=== PATIENT | female | born 1940 | race Caucasian/White ===

== ENCOUNTER 2017-06-10 09:14 | Outpatient (CLI) | payer MEDICARE ==
--- NOTE | 2017-06-10 12:15 | CT ---
CT ABDOMEN AND PELVIS NONCONTRAST: History: Abdominal pain. Cirrhosis. Liver failure. FINDINGS: No comparison. The exam was originally scheduled with IV contrast. Elevated creatinine of 1.7 with GF R of 30 precludes IV contrast administration. Mild atelectasis and scarring are present at each lung base. Small amount of free fluid is present th roughout the abdomen and pelvis. Liver is small with a nodular contour. Gallbladder is surgically abs ent. Spleen measures up to 15.3 cm in length. Dilated venous structures at the splenic hilum have the appearance of varices. There is no evidence of bowel obstruction. Nonspecific lymph nodes are scattered throughout the mesen cristina and retroperitoneum. Urinary bladder is incompletely distended. There is circumferential wall thickening of the partially distended stomach. Calcification is present throughout the arterial structures. There are degenerative changes of the lumbar spine. IMPRESSION: 1. Circumferential wall thickening of the stomach without focal mass evident. Clinical correlation wi th any other signs and symptoms of gastritis is required. Cause is not apparent. 2. Cirrhosis with findings of portal venous hypertension as detailed above. 3. Atherosclerosis. 4. Status post cholecystectomy. POS: [facility]
== END 2017-06-10 09:15 | disposition home or self-care (01) ==
LOC: CT 09:14
PROVIDERS: ATTEND Internal Medicine Gastroenterology
DX: K74.60 Unspecified cirrhosis of liver (principal); R10.11 Right upper quadrant pain; K72.90 Hepatic failure, unspecified without coma; K31.89 Other diseases of stomach and duodenum; I70.90 Unspecified atherosclerosis; Z90.49 Acquired absence of other specified parts of digestive tract
CPT/HCPCS: 74176

== ENCOUNTER 2017-06-24 07:26 | Outpatient (CLI) | payer MEDICARE ==
--- NOTE | 2017-06-24 10:32 | ULT ---
HEPATIC DOPPLER ULTRASOUND: Date: 06-24-2017 Comparison: None. History: Right upper quadrant pain, cirrhosis. Technique: Multiplanar grayscale sonographic imaging of the upper abdomen obtained. Hepatic and splen ic vasculature is assessed with color flow/spectral analysis. FINDINGS: The imaged pancreas is grossly unremarkable. However, the distal body and tail of the pancreas are ob scured by bowel gas. The aorta and IVC are grossly unremarkable, demonstrating arterial and venous waveforms bilaterally. Portions of the abdominal aorta are completely obscured by bowel gas. Left hepatic vein, left portal vein, middle hepatic vein, right hepatic vein, main portal vein, and r ight portal vein are patent. There is small volume free fluid adjacent to the left and right lobes of the liver. The hepatic paren chyma is heterogeneous and echogenic with a peripheral irregular contour, consistent with the provide d history of cirrhosis. No focal liver lesion is evident. CBD measures 7 mm, dilated. Hepatic artery is patent with a normal arterial waveform noted. The spleen is enlarged, measuring up to 15 cm. Splenic artery and vein are patent and demonstrate jose ropriate arterial and venous waveforms bilaterally. Gallbladder is nonvisualized, consistent with history of cholecystectomy. IMPRESSION: 1. Cirrhotic appearance of the liver. Small volume ascites adjacent to the liver. Ascites and splenom egaly suggests portal hypertension. Hepatic and splenic vasculature is patent and demonstrates approp riate normal direction of flow. POS: [facility]
== END 2017-06-24 07:27 | disposition home or self-care (01) ==
LOC: ULT 07:26
PROVIDERS: ATTEND Internal Medicine Gastroenterology
DX: K74.60 Unspecified cirrhosis of liver (principal); R10.11 Right upper quadrant pain; R18.8 Other ascites; R16.1 Splenomegaly, not elsewhere classified
CPT/HCPCS: 76705

== ENCOUNTER 2017-08-29 14:47 | Inpatient (IN) | payer MEDICARE ==
[2017-08-29 16:01] LABS: INR-International Normal Ratio 1.9; PTT 45.4 SEC (22.9-36.1); Prothrombin Time 22.4 SEC (12.0-14.7)
[2017-08-29 16:02] LABS: #Basophils 0.1 thou/uL (0.0-0.2); #Eosinphils 0.1 thou/uL (0.0-0.7); #Lymphocytes 0.7 thou/uL (1.20-3.40); #Monocytes 0.7 thou/uL (0.11-0.59); #Neutrophils 9.2 thou/uL (1.40-6.50); %Basophils 0.8 % (0.0-1.0); %Eosinophils 0.8 % (0.0-10.0); %Lymphocytes 6.8 % (21.0-51.0); %Monocytes 6.4 % (0.0-10.0); %Neutrophils 85.2 % (42.0-75.0); Hemoglobin 10.5 g/dL (12.0-16.0); Mean Corpuscular HGB CONC 33.5 g/dL (32.0-36.0); Mean Platelet Volume 7.2 fL (7.4-10.4); Platelet Count 110 thou/uL (130-400); RBC Distribution Width 14.1 % (11.5-14.5); Red Blood Cell (RBC) Count 3.09 mill/uL (4.20-5.40); White Blood Cell (WBC) Count 10.8 thou/uL (4.8-10.8)
[2017-08-29 16:11] LABS: ALT (SGPT) 17 U/L (8-55); AST (SGOT) 34 U/L (5-34); Albumin 2.3 g/dL (3.4-4.8); Alkaline Phosphatase 134 U/L (40-150); Anion Gap 16 mmol/L (10-20); BUN (Urea Nitrogen) 59 mg/dL (9.8-20.1); Bilirubin, Total 2.8 mg/dL (0.2-1.2); Calc. Creatinine Clearance 0 mL/min (70-130); Calcium 8.4 mg/dL (7.8-10.44); Carbon Dioxide 16 mmol/L (23-31); Chloride 106 mmol/L (98-107); Estimated GFR-MDRD 13; Globulin 3.1 g/dL (2.4-3.5); Glucose 92 mg/dL (83-110); Lipase 28 U/L (8-78); Potassium 3.4 mmol/L (3.5-5.1); Protein, Total 5.4 g/dL (6.0-8.3); Sodium 135 mmol/L (136-145)
[2017-08-29 16:27] LABS: Burr Cells SLIGHT = 2-5 cells (100X) (0-1/hpf); MDiff Complete? YES; Ovalocytes SLIGHT = 2-5 cells (100X) (0-1/hpf); PLT Morphology Comment Appears Decreased; Polychromasia SLIGHT = 2-3 cells (100X) (0-2/hpf)
--- NOTE | 2017-08-29 20:01 | RAD ---
RIGHT HIP TWO VIEWS: 08/29/17 HISTORY: Fall, right hip pain. FINDINGS/IMPRESSION: There are degenerative changes. No definite fracture or dislocation is identified. If there is a high clinical suspicion for hip fracture, further evaluation with CT scan should be per formed. POS: [facility]
[2017-08-29] MEDS: Famotidine 40 MG/4 ML VIAL SLOW IVP SCH (20:44)
[2017-08-29] MEDS: Sodium Chloride 0.9% 1,000 ML IV SCH (20:45)
[2017-08-29 20:49] LABS: Hemoglobin 10.2 g/dL (12.0-16.0)
[2017-08-29] MEDS ORDERED: Famotidine 20 MG TAB PO SCH (21:00)
[2017-08-29] MEDS ORDERED: Heparin 5,000 UNITS/ML VIAL SC SCH (21:00)
--- NOTE | 2017-08-29 23:04 | HP ---
CHIEF COMPLAINT: Generalized weakness. 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 The patient stated that she has been battling on and off lower extremity edema for the past few months and has been taking her diuretics as prescribed. The patient did have a fal l about 5-6 weeks back; however, did not hit her head. Patient's family stated that last night she h ad several bouts of dark stools, which she normally has just loose brown stools since she is on lactu lose. The patient started to become more and more weak and had a significant amount of lower extremi ty swelling. The patient was seen by the campus dean, who ordered some labs. The patient was found to have an elevated creatinine of 2, which is more than her baseline of 1. The patient then w as directed to come into the hospital for further evaluation, given her elevated creatinine and also dark stools. The patient in the ER, underwent a stool for occult blood, the stool was negative for FOBT. 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 PAST SURGICAL HISTORY: She has had a paracentesis in 2017. She had a cholecystectomy. She had a to nsillectomy and back and knee surgery. ALLERGIES: She has allergies to LATEX, NATURAL RUBBER, MORPHINE AND SULFA. SOCIAL HISTORY: The patient denies any alcohol use, any drug use or any smoking history and she live s alone. REVIEW OF SYSTEMS: The patient does complain of lower back pain and otherwise the whole review of sy stem is negative. The following complete review of systems was negative, unless otherwise mentioned in the HPI or below : Constitutional: Weight loss or gain, ability to conduct usual activities. Skin: Rash, itching. Eyes: Double vision, pain. ENT/Mouth: Nose bleeding, neck stiffness, pain, tenderness. Cardiovascular: Palpitations, dyspnea on exertion, orthopnea. Respiratory: Shortness of breath, wheezing, cough, hemoptysis, fever or night sweats. Gastrointestinal: Poor appetite, abdominal pain, heartburn, nausea, vomiting, constipation, or diarr hea. Genitourinary: Urgency, frequency, dysuria, nocturia. Musculoskeletal: Pain, swelling. Neurologic/Psychiatric: Anxiety, depression. Allergy/Immunologic: Skin rash, bleeding tendency. PHYSICAL EXAMINATION: VITAL SIGNS: Pulse of 68, temperature 97.6, blood pressure 132/56, respirations of 18, 100% on room air. GENERAL: The patient is awake, alert, oriented x3; however, does appear to be dehydrated. CARDIOVASCULAR: S1, S2 present. No murmurs, rubs or gallops. LUNGS: Clear to auscultation. No rhonchi or wheezes noted. ABDOMEN: Obese. She does have a midline healed abdominal scar. Bowel sounds are present x2. EXTREMITIES: The patient has significant +3 lower extremity pitting edema. She does have some pain upon palpation of her right hip area. LABORATORY DATA: Lab amador WBCs of 10.8, hemoglobin of 10.5, hematocrit of 31.4, platelets of 110. C hemistry of 135, potassium of 3.4, bicarbonate of 16, gap of 16, BUN of 59, creatinine of 3.35, lipas e of 28. LFTs are normal. ASSESSMENT AND PLAN: The patient is a very pleasant 77-year-old female who presents to the hospital from the GI clinic for worsening creatinine. 1. Acute kidney injury most likely secondary to prerenal dehydration; however, cannot rule out hepat orenal syndrome. I believe personally gave based on her lab results, it is most likely prerenal. We will hydrate her gently, hold off on the diuretics for now. Check some urine electrolytes and get a n ultrasound of her bladder. The patient did state that she did develop up on her spironolactone yes terday, since she has been having significant amount of weight gain. Dark stools. The patient FOBT was negative. Her hemoglobin is about her baseline; however, could be possibly hemoconcentrated. We will check H and H q.6 hours and transfuse as needed. We will start the patient on Pepcid 20 mg b.i.d., also, we will consult Gastroenterology for further evaluation. 2. Hypokalemia. We will replace with some potassium. 3. Non-anion gap metabolic acidosis. We will continue to monitor. 4. Elevated BUN, again this could be secondary to dehydration. We will continue to monitor. 5. Worsening lower extremity edema. This could be secondary to her cirrhosis, it could be secondary to her worsening kidney function, which would further lose the protein. Also, I will check an echoc ardiogram, given her age of 77, just want to rule out any cardiac issues of her worsening lower extre mity edema, which is refractory to diuretics according to the patient. 6. Deep venous thrombosis prophylaxis. We will put the patient on subcutaneous heparin for deep jessica ous thrombosis prophylaxis.
[2017-08-30 01:38] VITALS: BMI 35.4
[2017-08-30 05:14] LABS: #Basophils 0.1 thou/uL (0.0-0.2); #Eosinphils 0.2 thou/uL (0.0-0.7); #Lymphocytes 1.3 thou/uL (1.20-3.40); #Monocytes 0.7 thou/uL (0.11-0.59); #Neutrophils 6.6 thou/uL (1.40-6.50); %Basophils 0.6 % (0.0-1.0); %Eosinophils 2.3 % (0.0-10.0); %Lymphocytes 14.6 % (21.0-51.0); %Monocytes 7.6 % (0.0-10.0); Hemoglobin 9.2 g/dL (12.0-16.0); Mean Corpuscular HGB CONC 33.1 g/dL (32.0-36.0); Mean Corpuscular Hemoglobin 33.5 pg (27.0-31.0); Mean Platelet Volume 7.3 fL (7.4-10.4); Platelet Count 75 thou/uL (130-400); Red Blood Cell (RBC) Count 2.74 mill/uL (4.20-5.40); White Blood Cell (WBC) Count 8.8 thou/uL (4.8-10.8)
[2017-08-30 05:23] LABS: ALT (SGPT) 15 U/L (8-55); AST (SGOT) 33 U/L (5-34); Albumin 1.9 g/dL (3.4-4.8); Alkaline Phosphatase 119 U/L (40-150); Anion Gap 14 mmol/L (10-20); BUN (Urea Nitrogen) 63 mg/dL (9.8-20.1); Bilirubin, Total 2.1 mg/dL (0.2-1.2); Calc. Creatinine Clearance 22 mL/min (70-130); Calcium 8.1 mg/dL (7.8-10.44); Carbon Dioxide 17 mmol/L (23-31); Chloride 109 mmol/L (98-107); Estimated GFR-MDRD 14; Globulin 2.7 g/dL (2.4-3.5); Glucose 74 mg/dL (83-110); Potassium 3.5 mmol/L (3.5-5.1); Protein, Total 4.6 g/dL (6.0-8.3); Sodium 136 mmol/L (136-145)
[2017-08-30] MEDS: Sodium Chloride 0.9% 1,000 ML IV SCH ×3 (08:24→20:50)
--- NOTE | 2017-08-30 13:19 | ULT ---
BILATERAL RENAL ULTRASOUND: Date: 08/30/17 HISTORY: Acute renal insufficiency. FINDINGS: Real-time imaging of the right and left kidneys were performed. The right kidney measures 9.3 cm and the left kidney measures 8.1 cm in size. There appears to be brenda e cortical thinning of both kidneys and mild increased echogenicity of both kidneys. No signs of cyst , mass, or obstruction. Moderate ascites noted. The bladder is not fully distended. Incidental note is made of slightly enlarged spleen measuring 15.0 cm in length. IMPRESSION: 1. Mild increased echogenicity of both kidneys with cortical thinning. This suggests some underlying medical renal disease. 2. Ascites. 3. Mild splenomegaly. POS: [facility]
--- NOTE | 2017-08-30 14:51 | PDOC.PN ---
- Subjective Encounter Start Date: 08/30/17 Encounter Start Time: 13:00 Subjective: pt up in bed no complains - Objective Resuscitation Status: Resuscitation Status FULL:Full Resuscitation Vital Signs & Weight: Vital Signs (12 hours) Temp Pulse Resp BP Pulse Ox 08/30/17 12:00 98.2 F 95 18 109/56 L 99 08/30/17 08:00 98.3 F 78 16 99 08/30/17 07:53 98.3 F 78 16 115/67 99 08/30/17 03:46 97.9 F 70 15 108/60 97 Weight Weight 206 lb 8 oz I&O: 08/29/17 08/30/17 08/31/17 06:59 06:59 07:59 Intake Total 1500 Balance 1500 Result Diagrams: 08/30/17 04:01 08/30/17 04:01 Additional Labs: Accuchecks 08/30/17 08/29/17 05:41 21:24 POC Glucose 76 82 Phys Exam - Physical Examination HEENT: PERRLA, moist MMs Neck: no nodes, no JVD Respiratory: no wheezing, no rales Cardiovascular: RRR Gastrointestinal: soft, non-tender Musculoskeletal: edema present improved since last night Dx/Plan - Plan * . 1) shadi 2) dark stool 3) cirrhosis 4) falls plan: pt's creatinine is improving slowly, if her creatinine does not improve will need to consult nephrology. most likely prerenal, bladder scan pending fobt is negative will hold dirutics will check lumbar xray for back pain. PT /OT Review of Systems - Review of Systems Eyes: negative: Pain, Vision Change, Conjunctivae Inflammation, Eyelid Inflammation, Redness, Other ENT: negative: Ear Pain, Ear Discharge, Nose Pain, Nose Discharge, Nose Congestion, Mouth Pain, Mouth Swelling, Throat Pain, Throat Swelling, Other Respiratory: negative: Cough, Dry, Shortness of Breath, Hemoptysis, SOB with Excertion, Pleuritic Pain, Sputum, Wheezing Cardiovascular: negative: chest pain, palpitations, orthopnea, paroxysmal nocturnal dyspnea, edema, light headedness, other Gastrointestinal: negative: Nausea, Vomiting, Abdominal Pain, Diarrhea, Constipation, Melena, Hematochezia, Other Musculoskeletal: Back Pain - Medications/Allergies Allergies/Adverse Reactions: Allergies Allergy/AdvReac Type Severity Reaction Status Date / Time latex Allergy Verified 08/30/17 01:40 morphine Allergy Verified 08/30/17 01:40 Sulfa (Sulfonamide Allergy Verified 08/30/17 01:40 Antibiotics) Medications: Current Medications Famotidine (Pepcid) 20 mg SLOW IVP QPM [facility] Last Admin: 08/29/17 20:44 Dose: 20 mg Sodium Chloride (Normal Saline 0.9%) 1,000 mls @ 100 mls/hr IV .Q10H [facility] Last Admin: 08/30/17 11:41 Dose: Not Given
--- NOTE | 2017-08-30 15:51 | RAD ---
LUMBAR SPINE RADIOGRAPHS THREE VIEWS 08/30/17 PROVIDED CLINICAL HISTORY: Back pain. FINDINGS: Comparison is made with the study dated 05/04/15. Lumbar alignment appears normal. Lumbar vertebral body heights appear preserved. Lower lumbar spine f acet arthritis changes are seen. Vascular calcifications are noted. Cholecystectomy clips project in the right upper quadrant. IMPRESSION: Lumbar degenerative change without evidence for an acute osseous abnormality. POS: [facility]
[2017-08-30] MEDS: Famotidine 40 MG/4 ML VIAL SLOW IVP SCH (20:50)
[2017-08-30] MEDS: Lidocaine 5% Patch TD SCH (20:50)
--- NOTE | 2017-08-31 00:15 | CON ---
DATE OF CONSULTATION: 08/30/2017 REFERRING PHYSICIAN: Dr. Amira Kessler, [facility]. REASON FOR CONSULTATION: Generalized weakness, vague, arthralgias and generalized body pains and als o history of dark stool. HISTORY OF PRESENT ILLNESS: Ms. Patricia Machado is a very pleasant 77-year-old female wit h liver cirrhosis and ascites from SPENCE. The patient has had a therapeutic paracentesis done [place] [address] Minor. The patient also is supposed to be taking lactulose as a maintenance dose. The zora ent developed back pain, increased pedal edema and abdominal swelling approximately 10-14 days ago. She was seen by Dr. Daljit Minor and had some blood tests done. The patient's family tells me that Dr. Minor office called yesterday and asked them to come to the ER. The patient has been takin g diuretics for pedal edema. The patient has some vague back pain and generalized body pains recentl y. There is no history of fevers. The patient came to the ER and had routine blood tests done. She was found to have evidence of kidney injury with a BUN and creatinine being higher than her baseline status. Since admission, the patient's leg swelling has markedly improved. She has abdominal pain. There is no nausea, no vomiting. In fact, she actually feels hungry and she wants to eat now. The patient tells me she was having loose stools for a day or two and she was having multiple stools. S he said the stools were dark. However, when she came to the ER, she had a stool testing done for occ ult blood. The stools were negative for occult blood. Since admission, the patient is urinating sammie y well, but she has had no stool. She basically has clear liquid diet at the present time. No nause a or vomiting. The patient had an EGD and a colonoscopy by Dr. Minor in 03/2017. She had multiple polyps removed. Two of the polyps . She also had an EGD and as per the daughter, she was told to have 1+ esophageal varicosities. The patient has no relevant history. ALLERGIES: Allergic to LATEX, NATURAL RUBBER, MORPHINE and SULFA. SOCIAL HISTORY: The patient does not smoke or drink alcohol. PAST MEDICAL HISTORY: 1. Liver cirrhosis, ascites and portal hypertension. 2. Hypothyroidism. 3. Diabetes mellitus. 4. Hypertension. 5. Colon polyp. 6. Esophageal varicosities 1+ by endoscopy in 03/2017. 7. Apparently, she has a history of a fall in 2014 and was hospitalized. She was found to have a le ft occipital temporal subdural hematoma and was seen by Neurosurgery. They did not recommend surgery and apparently she was in ER for a while. PAST SURGICAL HISTORY: 1. Status post paracentesis in 2017. 2. Cholecystectomy. 3. Tonsillectomy. 4. Back surgery and knee surgery. 5. Colonoscopy and polypectomy in 03/2017. MEDICATIONS: List reviewed. REVIEW OF SYSTEMS: A 10-point system review. Constitutional: History of generalized weakness, arth ralgias and some back pain of recent onset. No history of fever or chills. Respiratory System: No history of chronic cough, hemoptysis or dyspnea. Cardiovascular System: No chest pain, no palpitati on, no exertional dyspnea, orthopnea or PND. Gastrointestinal: No abdominal pain, no nausea or vomi ting, but she has history of diarrhea and also some dark stool, but the stool guaiac is negative for occult blood. Genitourinary: No dysuria, hematuria or frequent urination. Musculoskeletal: Histor y of back pain over the last 10-14 days and had some arthralgias. Neuropsychiatric: No history of d epression or anxiety. PHYSICAL EXAMINATION: GENERAL: The patient is awake and appears comfortable. She is in no distress. VITAL SIGNS: Stable, afebrile, pulse is 95 and blood pressure is 109/56. HEENT: She appears pale. She is mildly icteric. NECK: Supple. No adenitis or thyromegaly noted. CARDIOVASCULAR SYSTEM: First and second heart sounds are normal. LUNGS: Clear to auscultation. ABDOMEN: Soft to palpate. Abdomen is nondistended. Abdomen is nontender; however, she has ascites on physical exam. EXTREMITIES: Reveal 3-4+ edema. There is no calf muscle tenderness. CENTRAL NERVOUS SYSTEM: Grossly within normal limits. LABORATORY DATA: Sodium is 136, potassium 3.5, chloride 109, bicarbonate 17, BUN is 63, creatinine 3 .21, glucose 74, calcium is 8.1, bilirubin 2.1, AST 33, ALT 15, alkaline phosphatase 119, total prote in 4.6, albumin 1.9, globulin 2.7 and vitamin B12 is 1405. IMAGING DATA: The patient had an abdominal sonogram done today. The renal ultrasound shows ascites, splenomegaly and also mild cortical thickening of both kidneys. CLINICAL IMPRESSION 1. Liver cirrhosis, ascites and pedal edema. 2. Worsening kidney function with an elevated BUN and creatinine. She had the same problem; I belie ve 2 or 3 years ago and was seen by Dr. Erick Ayala. Her numbers were a little lower than what it is today. It is possible the elevation of BUN is because she has been on extra dose of diuretics rec ently. 3. History of diabetes mellitus, not on any medical therapy 4. Hypertension, not on medication. RECOMMENDATIONS: 1. 4 g sodium diet. 2. As she has had no blood in the stool on stool guaiac testing, I will defer the endoscopic studies . The daughter tells me she had an EGD done in 03/2017 and was told to have 1+ varicosities. 3. Acute on chronic kidney injury. I did an abdominal sonogram, which shows no obstructive uropathy . 4. Consider renal input as she has seen Dr. Erick Ayala in the past. Dr. Minor had seen the [facility] before and he will resume care hopefully from Friday. This was conveyed to the patient and the p johanny's daughter.
[2017-08-31] MEDS ORDERED: Lidocaine Patch Removal 1 EACH TOP SCH (05:00)
[2017-08-31] MEDS: Sodium Chloride 0.9% 1,000 ML IV SCH ×3 (08:38→21:47)
[2017-08-31 09:29] LABS: Anion Gap 13 mmol/L (10-20); BUN (Urea Nitrogen) 63 mg/dL (9.8-20.1); Calc. Creatinine Clearance 22 mL/min (70-130); Calcium 7.9 mg/dL (7.8-10.44); Carbon Dioxide 18 mmol/L (23-31); Chloride 111 mmol/L (98-107); Estimated GFR-MDRD 14; Glucose 122 mg/dL (83-110); Potassium 3.5 mmol/L (3.5-5.1); Sodium 138 mmol/L (136-145)
--- NOTE | 2017-08-31 13:21 | PDOC.PN ---
- Subjective Encounter Start Date: 08/31/17 Encounter Start Time: 08:35 Subjective: is awake, no sob, is oriented - Objective Resuscitation Status: Resuscitation Status DNR:Do Not Resuscitate MAR Reviewed: Yes Vital Signs & Weight: Vital Signs (12 hours) Temp Pulse Resp BP Pulse Ox 08/31/17 11:20 97.5 F L 60 16 109/64 98 08/31/17 08:00 97.5 F L 61 18 135/61 96 Weight Weight 206 lb 8 oz I&O: 08/30/17 08/31/17 09/01/17 05:59 06:59 06:59 Intake Total Balance Result Diagrams: 08/30/17 04:01 08/31/17 09:02 Additional Labs: Accuchecks 08/31/17 08/31/17 08/30/17 11:41 05:02 20:21 POC Glucose 109 80 108 08/30/17 16:11 POC Glucose 96 Phys Exam - Physical Examination HEENT: PERRLA icterus+ Neck: no nodes, no JVD Respiratory: no wheezing, no rales Cardiovascular: RRR, no significant murmur Gastrointestinal: soft, positive bowel sounds ascites++ Musculoskeletal: pulses present, edema present Neurological: non-focal, moves all 4 limbs Psychiatric: A&O x 3 Dx/Plan (1) Cirrhosis Code(s): K74.60 - UNSPECIFIED CIRRHOSIS OF LIVER Status: Acute Qualifiers: Ascites presence: with ascites Comment: sec to SPENCE (2) SPENCE (nonalcoholic steatohepatitis) Code(s): K75.81 - NONALCOHOLIC STEATOHEPATITIS (SPENCE) Status: Chronic (3) AMANDA (acute kidney injury) Code(s): N17.9 - ACUTE KIDNEY FAILURE, UNSPECIFIED Status: Acute (4) Metabolic acidosis Code(s): E87.2 - ACIDOSIS Status: Acute (5) Coagulopathy Status: Chronic (6) Hypothyroidism Code(s): E03.9 - HYPOTHYROIDISM, UNSPECIFIED Status: Chronic Qualifiers: Hypothyroidism type: unspecified Qualified Code(s): E03.9 - Hypothyroidism , unspecified (7) Diabetes type 2, controlled Code(s): E11.9 - TYPE 2 DIABETES MELLITUS WITHOUT COMPLICATIONS Status: Chronic Qualifiers: Diabetes mellitus complication status: with unspecified complications Diabetes mellitus care home insulin use: without supervisor intermediates use Qualified Code( s): E11.8 - Type 2 diabetes mellitus with unspecified complications (8) Hypertension Code(s): I10 - ESSENTIAL (PRIMARY) HYPERTENSION Status: Chronic Qualifiers: Hypertension type: essential hypertension Qualified Code(s): I10 - Essential (primary) hypertension - Plan has a MELD score of 28, inr 1.9, alb 1.9, t.bili 2.1 -: pt is DNR, not sure if she is a transplant candidate, await gi advice -: d/w daughter and patient, wants to be DNR -: family aware of hepatorenal syndrome and current labs/guarded prognosis -: will consult , getting iv fluids which might worsen ascites, alb1.9 * . Review of Systems - Medications/Allergies Allergies/Adverse Reactions: Allergies Allergy/AdvReac Type Severity Reaction Status Date / Time latex Allergy Verified 08/30/17 01:40 morphine Allergy Verified 08/30/17 01:40 Sulfa (Sulfonamide Allergy Verified 08/30/17 01:40 Antibiotics) Medications: Current Medications Famotidine (Pepcid) 20 mg SLOW IVP QPM CAR[facility]YN Last Admin: 08/30/17 20:50 Dose: 20 mg Sodium Chloride (Normal Saline 0.9%) 1,000 mls @ 100 mls/hr IV .Q10H [facility] Last Admin: 08/31/17 08:38 Dose: 1,000 mls Lidocaine (Lidoderm 5% Patch) 1 patch TD 2100 CAROLYN Last Admin: 08/30/17 20:50 Dose: 1 patch Miscellaneous Medication (Lidocaine Patch Removal) 1 each TOP 0900 CAROLYN
--- NOTE | 2017-08-31 13:35 | CON ---
DATE OF CONSULTATION: 08/31/2017 SERVICE: Renal Medicine. HISTORY OF PRESENT ILLNESS: Ms. Machado is a 77-year-old white female, who was admitted for generali zed weakness. This patient has a history of cirrhosis. We are now being consulted for her acute kidney injury on t op of her chronic renal failure. Please note at one time this patient was seen by the Renal Service for her renal dysfunction. At that time, we empirically volume repleted the patient with some result ant stabilization of her creatinine to almost near normal of 1.15. This was back in 2014. REVIEW OF SYSTEMS: No chest pain. Positive for generalized malaise. No nausea, no vomiting, no marlene rrhea, no constipation, no syncopal episode, no fever or chills, no diarrhea, no abdominal pain. Meka etite decreased. Energy level is decreased. No hematochezia, no melena, no hematemesis, no gross h ematuria, no dysuria, no urinary frequency. Medications of 08/31/2017 were reviewed, currently on normal saline at 100 mL per hour. Review of he r home medications also showed that she was on spironolactone and furosemide and this has been discon tinued. PAST MEDICAL HISTORY: 1. Status post acute kidney injury. 2. History of liver disorder - cirrhosis. 3. Status post subdural hematoma, type 2 diabetes mellitus, ?DJD. PAST SURGICAL HISTORY: 1. Status post right knee replacement. 2. Status post back surgery. 3. Status post cholecystectomy. 4. Status post tonsillectomy. 5. Status post upper GI endoscopy. ALLERGIES: MORPHINE SULFATE. TRAUMA: Status post head injury. IMMUNIZATIONS: Up-to-date. HOSPITALIZATIONS: Please see past medical history. SOCIAL HISTORY: The patient lives alone, lives in [place]. 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 No h istory of smoking, no alcohol intake, no IV drug abuse. Education, nursing school. Sedentary lifest yle. FAMILY HISTORY: No family history of ESRD. PHYSICAL EXAMINATION: VITAL SIGNS: Blood pressure is noted at 135/61, heart rate 61, respiratory rate 18, temperature 97.5 , pulse ox 96%. GENERAL EXAM: Awake, alert, supine, comfortable, not in distress. SKIN: Adequate turgor. HEENT: She has pinkish conjunctivae. Anicteric sclerae. NECK: No neck mass, no carotid bruits, no JVD. CHEST: No deformities. LUNGS: Clear breath sounds. HEART: Normal sinus rhythm. No murmur, no gallops, no rubs. ABDOMEN: Globular, soft, nontender, no masses. EXTREMITIES: No edema, no deformities. LABORATORY DATA: Laboratories of 08/30/2017, urine creatinine was 82. 08/31/2017, sodium 135, potas sium 3.5, chloride 111, carbon dioxide 18, BUN 63, creatinine 3.18, glucose 122, calcium 7.9. 2017, BUN 63 and creatinine 3.21. 08/29/2017, creatinine 3.35. ASSESSMENT AND PLAN: Acute kidney injury, consider superimposed hemodynamically mediated renal dysfu nction. Patient was on spironolactone and Lasix. Discontinued diuretics. Agree with empiric gentle volume repletion of normal saline. No indication for any dialytic intervention. I will at least ru le out acute tubular necrosis with this patient. A urinalysis will be ordered. For the moment, agre e with current management. Recheck basic metabolic panel and CBC in a.m.
[2017-08-31] MEDS: Lidocaine Patch Removal 1 EACH TOP SCH (13:46)
[2017-08-31] MEDS ORDERED: Lidocaine 5% Patch TD SCH (17:00)
--- NOTE | 2017-08-31 17:25 | PRG ---
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 The patient presents with pedal edema and also some back pain. She was foun d to be without any evidence of chronic kidney disease and possibly some dehydration. She has not clay d any diuresis for the last 48 hours. She is on IV fluids. She is doing well. She had no back pain . She is eating well. No nausea. She has had no stool since admission. Her repeat lab data from t his morning chem-7 shows no change. Her BUN remains elevated at 63, her creatinine is 3.18, chloride is 111, and bicarbonate is 18. PHYSICAL EXAMINATION: GENERAL: She is awake, alert, oriented to time, place and person. VITAL SIGNS: Afebrile. Pulse is 61, blood pressure 135/66. CARDIOVASCULAR SYSTEM: First and second heart sounds normal. LUNGS: Clear to auscultation. ABDOMEN: Soft to palpate. Abdomen is nontender. She does have ascites. EXTREMITIES: Reveal decreasing edema. LABORATORY DATA: As mentioned earlier, not much change in her kidney function test. RECOMMENDATIONS: 1. Increase p.o. intake. 2. Hold diuretics. 3. Nephrology consult with Dr. Erick Ayala who has seen the patient in past.
[2017-08-31] MEDS: Famotidine 40 MG/4 ML VIAL SLOW IVP SCH (21:02)
[2017-08-31] MEDS: Lidocaine 5% Patch TD SCH (21:02)
[2017-08-31 22:02] LABS: Bilirubin Negative (Negative); Blood, Urine Moderate (Negative); Clarity CLOUDY (Clear); Glucose, Urine (Dipstick) Negative (Negative); Leukocyte Moderate (Negative); Nitrite Negative (Negative); Protein, Urine (Dipstick) Negative (Neg-Trace); Specific Gravity, Urine 1.014 (1.002-1.036); Urobilinogen 0.2 mg/dL (0.2-1.0); pH, Urine 5.5 (5.0-9.0)
[2017-08-31 22:03] LABS: Bacteria/HPF 1+ HPF (None Seen); Hyaline Casts/LPF 4-6 HYALINE CAST LPF (0-3 Hyaline); Pathc Cast-AUWi Flag 0.94 (0-2.49); WBC/HPF 21-50 HPF (0-3)
[2017-09-01] MEDS ORDERED: traMADol HCl 50 MG TAB PO SCH (02:00)
[2017-09-01] MEDS: Sodium Chloride 0.9% 1,000 ML IV SCH ×3 (07:28→21:40)
[2017-09-01 08:27] LABS: #Basophils 0.1 thou/uL (0.0-0.2); #Eosinphils 0.4 thou/uL (0.0-0.7); #Lymphocytes 1.2 thou/uL (1.20-3.40); #Monocytes 0.6 thou/uL (0.11-0.59); #Neutrophils 3.4 thou/uL (1.40-6.50); %Basophils 0.9 % (0.0-1.0); %Lymphocytes 20.6 % (21.0-51.0); %Monocytes 11.3 % (0.0-10.0); %Neutrophils 60.3 % (42.0-75.0); Hemoglobin 9.2 g/dL (12.0-16.0); Mean Corpuscular HGB CONC 33.2 g/dL (32.0-36.0); Mean Corpuscular Hemoglobin 34.3 pg (27.0-31.0); Mean Platelet Volume 7.2 fL (7.4-10.4); Platelet Count 82 thou/uL (130-400); RBC Distribution Width 14.4 % (11.5-14.5); Red Blood Cell (RBC) Count 2.67 mill/uL (4.20-5.40); White Blood Cell (WBC) Count 5.7 thou/uL (4.8-10.8)
[2017-09-01 08:51] LABS: ALT (SGPT) 15 U/L (8-55); AST (SGOT) 33 U/L (5-34); Albumin 1.9 g/dL (3.4-4.8); Alkaline Phosphatase 122 U/L (40-150); Anion Gap 11 mmol/L (10-20); BUN (Urea Nitrogen) 60 mg/dL (9.8-20.1); Calc. Creatinine Clearance 26 mL/min (70-130); Calcium 7.9 mg/dL (7.8-10.44); Carbon Dioxide 18 mmol/L (23-31); Chloride 112 mmol/L (98-107); Estimated GFR-MDRD 18; Globulin 2.6 g/dL (2.4-3.5); Glucose 110 mg/dL (83-110); Potassium 3.3 mmol/L (3.5-5.1); Protein, Total 4.5 g/dL (6.0-8.3); Sodium 138 mmol/L (136-145)
[2017-09-01] MEDS: Lidocaine Patch Removal 1 EACH TOP SCH (11:50)
--- NOTE | 2017-09-01 12:14 | PDOC.PN ---
- Subjective Encounter Start Date: 09/01/17 Encounter Start Time: 11:00 Subjective: no sob, feels better -: is awake and responds well to verbal stimuli -: is eating better, slept well the second half of night - Objective Resuscitation Status: Resuscitation Status DNR:Do Not Resuscitate MAR Reviewed: Yes Vital Signs & Weight: Vital Signs (12 hours) Temp Pulse Resp BP Pulse Ox 09/01/17 10:56 97.6 F 65 18 119/48 L 99 09/01/17 08:26 97.7 F 67 16 111/67 100 09/01/17 07:42 98.1 F 70 16 97 Weight Weight 206 lb 8 oz I&O: 08/31/17 09/01/17 09/02/17 06:59 06:59 06:59 Intake Total 3700 Balance 3700 Result Diagrams: 09/01/17 08:11 09/01/17 08:11 Additional Labs: Accuchecks 09/01/17 09/01/17 08/31/17 10:29 04:36 19:46 POC Glucose 103 94 129 H 08/31/17 16:38 POC Glucose 132 H Phys Exam - Physical Examination HEENT: PERRLA, moist MMs Neck: no JVD, supple Respiratory: no wheezing, no rales Cardiovascular: RRR, no significant murmur Gastrointestinal: soft, positive bowel sounds ascites++ Musculoskeletal: pulses present, edema present Neurological: non-focal, moves all 4 limbs Psychiatric: A&O x 3 Dx/Plan (1) Cirrhosis Code(s): K74.60 - UNSPECIFIED CIRRHOSIS OF LIVER Status: Acute Qualifiers: Ascites presence: with ascites Comment: sec to SPENCE, Meld score of 28 (2) SPENCE (nonalcoholic steatohepatitis) Code(s): K75.81 - NONALCOHOLIC STEATOHEPATITIS (SPENCE) Status: Chronic (3) AMANDA (acute kidney injury) Code(s): N17.9 - ACUTE KIDNEY FAILURE, UNSPECIFIED Status: Acute (4) Metabolic acidosis Code(s): E87.2 - ACIDOSIS Status: Acute (5) Coagulopathy Status: Chronic (6) Hypothyroidism Code(s): E03.9 - HYPOTHYROIDISM, UNSPECIFIED Status: Chronic Qualifiers: Hypothyroidism type: unspecified Qualified Code(s): E03.9 - Hypothyroidism , unspecified (7) Diabetes type 2, controlled Code(s): E11.9 - TYPE 2 DIABETES MELLITUS WITHOUT COMPLICATIONS Status: Chronic Qualifiers: Diabetes mellitus complication status: with unspecified complications Diabetes mellitus fpc insulin use: without terminal carman use Qualified Code( s): E11.8 - Type 2 diabetes mellitus with unspecified complications (8) Hypertension Code(s): I10 - ESSENTIAL (PRIMARY) HYPERTENSION Status: Chronic Qualifiers: Hypertension type: essential hypertension Qualified Code(s): I10 - Essential (primary) hypertension - Plan decrease iv fluids, renal function receding down -: will likely need palliative care, await opinion -: Pt is DNR, not sure if she is a tx candidate (family not inclined to donate -: to amb as tolerated -: overall prognosis is guarded, likely her ascites will worson with iv fluids * . Review of Systems - Medications/Allergies Allergies/Adverse Reactions: Allergies Allergy/AdvReac Type Severity Reaction Status Date / Time latex Allergy Verified 08/30/17 01:40 morphine Allergy Verified 08/30/17 01:40 Sulfa (Sulfonamide Allergy Verified 08/30/17 01:40 Antibiotics) Medications: Current Medications Famotidine (Pepcid) 20 mg SLOW IVP QPM [facility] Last Admin: 08/31/17 21:02 Dose: 20 mg Sodium Chloride (Normal Saline 0.9%) 1,000 mls @ 50 mls/hr IV .Q20H CAROLYN Last Admin: 09/01/17 11:50 Dose: Not Given Lidocaine (Lidoderm 5% Patch) 1 patch TD 2100 CAROLYN Last Admin: 08/31/17 21:02 Dose: 1 patch Miscellaneous Medication (Lidocaine Patch Removal) 1 each TOP 0900 CAROLYN Last Admin: 09/01/17 11:50 Dose: 1 each Sodium Chloride (Flush - Normal Saline) 10 ml IVF Q12HR CAROLYN Last Admin: 09/01/17 09:19 Dose: Not Given Sodium Chloride (Flush - Normal Saline) 10 ml IVF PRN PRN PRN Reason: Saline Flush
--- NOTE | 2017-09-01 16:23 | PRG ---
DATE OF SERVICE: 09/01/2017 SUBJECTIVE: The patient is feeling fine. She is not having any nausea, vomiting. She is eating wel l. She had a bowel movement yesterday. OBJECTIVE: VITAL SIGNS: Temperature 97.6, pulse 65, respiratory rate 18, blood pressure 119/48. CHEST: Clear. CARDIOVASCULAR: Regular rate and rhythm. ABDOMEN: Soft, nondistended, but nontender. EXTREMITIES: Showed 2+ bilateral edema. LABORATORY DATA: Shows white blood cell count of 57, hemoglobin 9.2, hematocrit 27.6, platelet count 82,000. Chemistries show creatinine of 2.63, BUN of 60, potassium 3.3, chloride 112, CO2 18, total bilirubin 2.0, and albumin 1.9. ASSESSMENT: 1. Cirrhosis - stable. 2. Acute kidney injury - improved with discontinuation of diuretics and empiric gentle volume replet ion. 3. Hypertension. 4. Diabetes mellitus. RECOMMENDATIONS: 1. Agree with fluid resuscitation gently. 2. At this point, I do not think family and patient are ready for hospice care. 3. Review of echocardiogram results.
[2017-09-01] MEDS ORDERED: traMADol HCl 50 MG TAB PO PRN (18:25)
[2017-09-01] MEDS: Lidocaine 5% Patch TD SCH (21:32)
[2017-09-01] MEDS: Famotidine 40 MG/4 ML VIAL SLOW IVP SCH (21:32)
[2017-09-02 05:08] LABS: ALT (SGPT) 17 U/L (8-55); AST (SGOT) 33 U/L (5-34); Albumin 1.9 g/dL (3.4-4.8); Alkaline Phosphatase 123 U/L (40-150); Anion Gap 11 mmol/L (10-20); BUN (Urea Nitrogen) 59 mg/dL (9.8-20.1); Calc. Creatinine Clearance 32 mL/min (70-130); Calcium 8.1 mg/dL (7.8-10.44); Carbon Dioxide 17 mmol/L (23-31); Chloride 114 mmol/L (98-107); Estimated GFR-MDRD 22; Globulin 2.7 g/dL (2.4-3.5); Glucose 93 mg/dL (83-110); Potassium 3.6 mmol/L (3.5-5.1); Protein, Total 4.6 g/dL (6.0-8.3); Sodium 138 mmol/L (136-145)
[2017-09-02] MEDS ORDERED: Non-Formulary Item 1 EACH (Lactulose [Lactulose] 15 ML) PO PRN (08:32)
[2017-09-02] MEDS: Lidocaine Patch Removal 1 EACH TOP SCH (08:58)
[2017-09-02] MEDS ORDERED: Levothyroxine Sodium 25 MCG TAB PO SCH ×2 (09:00)
--- NOTE | 2017-09-02 11:02 | PRG ---
DATE OF SERVICE: 09/02/2017 SERVICE: Renal Medicine. SUBJECTIVE: Ms. Machado is a 77-year-old white female, who was seen by the Renal Service for acute k idney injury that was hemodynamically mediated renal function. Renal function has been slowly improv ing over time with gentle volume repletion. Her most recent creatinine is now 2.21. At one time, th is was said to have peaked at the value of 3.35. She was on diuretics prior to admission and that wa s also discontinued. No other complaints. She is feeling better. The patient denies any chest pain or shortness of breath. OBJECTIVE: VITAL SIGNS: Blood pressure is 119/65, heart rate 71, respiratory rate 18, temperature 97.7, pulse o x 94%. GENERAL EXAM: Awake, alert, comfortable, not in distress. SKIN: Adequate turgor. HEENT: She has a slightly pale conjunctivae, anicteric sclerae. NECK: No neck mass, no carotid bruits, no JVD. CHEST: No deformities. LUNGS: Clear breath sounds, no wheezing, no crackles. HEART: Normal sinus rhythm. No murmur, no gallops, no rubs. ABDOMEN: Globular, soft, nontender. No masses. EXTREMITIES: No edema, no deformities. Medications of 09/02/2017 reviewed. LABORATORY DATA: Laboratories of 09/02/2017, sodium 138, potassium 2.6, chloride 114, carbon dioxide 17, BUN 59, creatinine 2.21. AST is 33, ALT 77, albumin 1.9. ASSESSMENT AND PLAN: 1. Acute kidney injury on top of possible chronic renal failure, superimposed prerenal azotemia, muc h improved with gentle volume repletion. Continue current supportive management. 2. Cirrhosis - GI following. Continue supportive care. I would be updating notes regarding her gio al function. Agree with current management.
--- NOTE | 2017-09-02 16:30 | PDOC.PN ---
- Subjective Encounter Start Date: 09/02/17 Encounter Start Time: 08:40 Subjective: no complaints, feels better -: has not amb yet - Objective Resuscitation Status: Resuscitation Status DNR:Do Not Resuscitate MAR Reviewed: Yes Vital Signs & Weight: Vital Signs (12 hours) Temp Pulse Resp BP Pulse Ox 09/02/17 08:00 97.7 F 71 18 119/65 94 L Weight Weight 206 lb 8 oz I&O: 09/01/17 09/02/17 09/03/17 06:59 06:59 06:59 Intake Total 3700 1200 Output Total 150 Balance 3700 1050 Result Diagrams: 09/01/17 08:11 09/02/17 04:29 Additional Labs: Accuchecks 09/02/17 09/01/17 09/01/17 11:40 19:30 16:01 POC Glucose 98 111 H 86 Phys Exam - Physical Examination HEENT: PERRLA, moist MMs Neck: no JVD, supple Respiratory: no wheezing, no rales Cardiovascular: RRR, no significant murmur Gastrointestinal: soft, non-tender, positive bowel sounds ascites++ Musculoskeletal: pulses present, edema present Neurological: non-focal, moves all 4 limbs Psychiatric: A&O x 3 Dx/Plan (1) Cirrhosis Code(s): K74.60 - UNSPECIFIED CIRRHOSIS OF LIVER Status: Acute Qualifiers: Ascites presence: with ascites Comment: sec to SPENCE, Meld score of 28 (2) SPENCE (nonalcoholic steatohepatitis) Code(s): K75.81 - NONALCOHOLIC STEATOHEPATITIS (SPENCE) Status: Chronic (3) AMANDA (acute kidney injury) Code(s): N17.9 - ACUTE KIDNEY FAILURE, UNSPECIFIED Status: Acute (4) Metabolic acidosis Code(s): E87.2 - ACIDOSIS Status: Acute (5) Coagulopathy Status: Chronic (6) Hypothyroidism Code(s): E03.9 - HYPOTHYROIDISM, UNSPECIFIED Status: Chronic Qualifiers: Hypothyroidism type: unspecified Qualified Code(s): E03.9 - Hypothyroidism , unspecified (7) Diabetes type 2, controlled Code(s): E11.9 - TYPE 2 DIABETES MELLITUS WITHOUT COMPLICATIONS Status: Chronic Qualifiers: Diabetes mellitus intermediate school teacher insulin use: without intermediate school teacher use Diabetes mellitus complication status: with unspecified complications Qualified Code(s) : E11.8 - Type 2 diabetes mellitus with unspecified complications (8) Hypertension Code(s): I10 - ESSENTIAL (PRIMARY) HYPERTENSION Status: Chronic Qualifiers: Hypertension type: essential hypertension Qualified Code(s): I10 - Essential (primary) hypertension - Plan renal function is better, dc iv fluids -: deconditioning, PT to ambulate as tolerated -: dc plan will be home with PT if she can amb and manage at home if not snf -: d/w daughter over phone and have given full updates -: prognosis guarded, family is aware * . Review of Systems - Medications/Allergies Allergies/Adverse Reactions: Allergies Allergy/AdvReac Type Severity Reaction Status Date / Time latex Allergy Verified 08/30/17 01:40 morphine Allergy Verified 08/30/17 01:40 Sulfa (Sulfonamide Allergy Verified 08/30/17 01:40 Antibiotics) Medications: Current Medications Famotidine (Pepcid) 20 mg PO BID CAROLYN Lactulose (Lactulose) 10 gm PO TIDPRN PRN PRN Reason: CONSTIPATION Levothyroxine Sodium (Synthroid) 25 mcg PO 0600 CAROLYN Lidocaine (Lidoderm 5% Patch) 1 patch TD 2100 CAROLYN Last Admin: 09/01/17 21:32 Dose: Not Given Miscellaneous Medication (Lidocaine Patch Removal) 1 each TOP 0900 CAROLYN Last Admin: 09/02/17 08:58 Dose: Not Given Sodium Chloride (Flush - Normal Saline) 10 ml IVF Q12HR CAROLYN Last Admin: 09/02/17 08:58 Dose: Not Given Sodium Chloride (Flush - Normal Saline) 10 ml IVF PRN PRN PRN Reason: Saline Flush Tramadol HCl (Ultram) 50 mg PO Q6H PRN PRN Reason: Pain Last Admin: 09/01/17 21:32 Dose: 50 mg
--- NOTE | 2017-09-02 18:05 | PRG ---
DATE OF SERVICE: 09/02/2017 SUBJECTIVE: The patient is feeling well. She is eating about half of her tray. She has had no naus ea, vomiting. She had a bowel movement today. OBJECTIVE: VITAL SIGNS: Temperature 97.7, pulse 71, respiratory rate 18, blood pressure 119/65. LABORATORY DATA: Shows a BUN 59, creatinine 2.21, hemoglobin 9.2. ASSESSMENT: 1. Cirrhosis. 2. Acute kidney injury - resolving. 3. Hypertension. 4. Diabetes mellitus. RECOMMENDATIONS: 1. Continue to maintain off diuretics. 2. Follow up with GI as outpatient to manage cirrhosis and ascites.
[2017-09-02] MEDS: Lidocaine 5% Patch TD SCH (20:46)
[2017-09-02] MEDS: Famotidine 20 MG TAB PO SCH (20:46)
[2017-09-03 05:44] LABS: ALT (SGPT) 18 U/L (8-55); AST (SGOT) 43 U/L (5-34); Albumin 1.9 g/dL (3.4-4.8); Alkaline Phosphatase 136 U/L (40-150); Anion Gap 12 mmol/L (10-20); BUN (Urea Nitrogen) 56 mg/dL (9.8-20.1); Bilirubin, Total 2.3 mg/dL (0.2-1.2); Calc. Creatinine Clearance 36 mL/min (70-130); Calcium 8.4 mg/dL (7.8-10.44); Carbon Dioxide 15 mmol/L (23-31); Chloride 116 mmol/L (98-107); Estimated GFR-MDRD 25; Globulin 3.2 g/dL (2.4-3.5); Glucose 85 mg/dL (83-110); Potassium 4.1 mmol/L (3.5-5.1); Protein, Total 5.1 g/dL (6.0-8.3); Sodium 139 mmol/L (136-145)
[2017-09-03] MEDS ORDERED: Levothyroxine Sodium 25 MCG TAB PO SCH (06:00)
[2017-09-03] MEDS: Famotidine 20 MG TAB PO SCH (09:42)
[2017-09-03] MEDS: Lidocaine Patch Removal 1 EACH TOP SCH (09:42)
--- NOTE | 2017-09-03 11:07 | PDOC.PN ---
- Subjective Encounter Start Date: 09/03/17 Encounter Start Time: 13:00 Subjective: Patient with persistent right hip pain, chronic, that makes it hard to -: walk. Otherwise doing well. - Objective Resuscitation Status: Resuscitation Status DNR:Do Not Resuscitate MAR Reviewed: Yes Vital Signs & Weight: Vital Signs (12 hours) Temp Pulse Resp BP Pulse Ox 09/03/17 07:43 97.8 F 74 16 138/65 97 Weight Weight 206 lb 8 oz I&O: 09/02/17 09/03/17 09/04/17 06:59 06:59 06:59 Intake Total 1200 500 Output Total 150 Balance 1050 500 Result Diagrams: 09/01/17 08:11 09/03/17 04:25 Additional Labs: Accuchecks 09/03/17 09/02/17 09/02/17 04:19 19:45 16:41 POC Glucose 91 117 H 107 09/02/17 09/01/17 11:40 16:01 POC Glucose 98 86 Phys Exam - Physical Examination Constitutional: NAD HEENT: moist MMs Respiratory: no wheezing, no rales, no rhonchi Cardiovascular: RRR Gastrointestinal: soft, positive bowel sounds distended with fluid wave Musculoskeletal: edema present Neurological: non-focal, moves all 4 limbs Psychiatric: normal affect Dx/Plan (1) Cirrhosis Code(s): K74.60 - UNSPECIFIED CIRRHOSIS OF LIVER Status: Acute Qualifiers: Ascites presence: with ascites Comment: sec to SPENCE, Meld score of 28 (2) SPENCE (nonalcoholic steatohepatitis) Code(s): K75.81 - NONALCOHOLIC STEATOHEPATITIS (SPENCE) Status: Chronic (3) AMANDA (acute kidney injury) Code(s): N17.9 - ACUTE KIDNEY FAILURE, UNSPECIFIED Status: Acute Comment: continues to improve with gentle fluids and hold diuretics (4) Metabolic acidosis Code(s): E87.2 - ACIDOSIS Status: Acute (5) Coagulopathy Status: Chronic (6) Hypothyroidism Code(s): E03.9 - HYPOTHYROIDISM, UNSPECIFIED Status: Chronic Qualifiers: Hypothyroidism type: unspecified Qualified Code(s): E03.9 - Hypothyroidism , unspecified (7) Diabetes type 2, controlled Code(s): E11.9 - TYPE 2 DIABETES MELLITUS WITHOUT COMPLICATIONS Status: Chronic Qualifiers: Diabetes mellitus rn long term care insulin use: without penitentiary use Diabetes mellitus complication status: with unspecified complications Qualified Code(s) : E11.8 - Type 2 diabetes mellitus with unspecified complications (8) Hypertension Code(s): I10 - ESSENTIAL (PRIMARY) HYPERTENSION Status: Chronic Qualifiers: Hypertension type: essential hypertension Qualified Code(s): I10 - Essential (primary) hypertension - Plan cont current plan of care, PT/OT patient will need rehab vs. SNF as not ambulatory without assistance * . - Discharge Day Encounter end time: 13:30
[2017-09-03 19:32] VITALS: BP 135/68; TEMP 98.3
--- NOTE | 2017-09-04 02:06 | DIS ---
PRIMARY CARE PHYSICIAN: Dr. Pedro Luis Singh. DIAGNOSES ON ADMISSION: 1. Acute kidney injury secondary to prerenal dehydration. 2. Hypokalemia. 3. Worsening lower extremity edema. 4. Cirrhosis secondary to nonalcoholic steatohepatitis. 5. Hypothyroidism. DIAGNOSES AT DISCHARGE: 1. Cirrhosis of the liver secondary to nonalcoholic steatohepatitis. 2. Acute kidney injury secondary to over diuresis. 3. Metabolic acidosis secondary to #2. 4. Coagulopathy secondary to #1. 5. Hypothyroidism. PROCEDURES: 1. Echocardiogram showing ejection fraction of 55%-60% with diastolic dysfunction. 2. Right hip x-ray showing degenerative changes, but no fracture or dislocation. 3. Lumbar spine x-ray showing degenerative changes, but no acute abnormalities. 4. Renal ultrasound showing mild increased echogenicity of both kidneys with cortical thinning sugge sting medical renal disease also with ascites and mild splenomegaly. CONSULTATIONS: 1. Gastroenterology, Dr. Contreras and Dr. العلي. 2. Neurology, Dr. Ayala. PERTINENT LABORATORY DATA: Hemoglobin stable between 9 and 10. INR 1.5. Creatinine initially 3.35 down to 1.92 the day of discharge after holding diuretics. Total bilirubin is 2.3 and albumin is 1.9 . SUMMARY OF HOSPITAL COURSE: This is a 77-year-old female with history of cirrhosis secondary to SPENCE , who presented to the ER from the GI clinic for worsening acute renal failure and some dark stools. She has been having lower extremity edema on and off for few months and is taking diuretics as presc ribed, also had large belly. Creatinine is elevated above her baseline of 1 and she was put in the h ospital, diuretics were held, and she was given IV fluids states that were done as above. She also h as complaints of some right hip pain, was very hard for her to ambulate at home, so x-rays were done, which showed above results. Patient's creatinine improved over the hospitalization; however, she wa s very weak, was unable to ambulate without assistance. She had no significant drop in her hemoglobi n. She was not that dark stools and not thought to be a GI bleed and her stool occult blood was nega tive. Patient was doing better on the day of discharge, but still unable to ambulate independently a nd she lives at home alone, so she is being transferred to inpatient rehabilitation. GI will continu e to hold her diuretics for now. DISCHARGE MANAGEMENT: Discharged to [facility]. ACTIVITIES: As tolerated. Physical and occupational therapy. DIET: Low-sodium diet. MEDICATIONS: 1. Lactulose 15 mL 3 times a day as needed. 2. Levothyroxine 25 mcg daily. 3. Lidocaine patch to lumbar spine as needed. FOLLOWUP: Patient is to follow up with Gastroenterology in the next 2-3 weeks.
== END 2017-09-03 20:00 | DRG 441 ==
LOC: ERS 14:47 → T4-B 18:00
PROVIDERS: ADMIT Internal Medicine; ATTEND Internal Medicine
DX: K75.81 Nonalcoholic steatohepatitis (NASH) (principal); K76.7 Hepatorenal syndrome; N17.9 Acute kidney failure, unspecified; E87.2 Acidosis; D68.9 Coagulation defect, unspecified; K76.6 Portal hypertension; E11.22 Type 2 diabetes mellitus with diabetic chronic kidney disease; R18.8 Other ascites; E86.0 Dehydration; K74.60 Unspecified cirrhosis of liver; Z66 Do not resuscitate; E03.9 Hypothyroidism, unspecified; E87.6 Hypokalemia; I12.9 Hypertensive chronic kidney disease with stage 1 through stage 4 chronic kidney disease, or unspecified chronic kidney disease; N18.9 Chronic kidney disease, unspecified
CPT/HCPCS: 36415; 36416; 72100; 76770; 80048; 80053; 81001; 82140; 82274; 82570; 82607; 83690; 84443; 84540; 85025; 85027; 85610; 85730; 93306; A4216; G8978-GP-CM; G8979-GP-CK

== ENCOUNTER 2017-09-28 11:13 | Inpatient (IN) | payer MEDICARE ==
[2017-09-28 11:58] LABS: #Basophils 0.1 thou/uL (0.0-0.2); #Eosinphils 0.3 thou/uL (0.0-0.7); #Lymphocytes 1.2 thou/uL (1.20-3.40); #Monocytes 0.7 thou/uL (0.11-0.59); #Neutrophils 4.5 thou/uL (1.40-6.50); %Basophils 0.8 % (0.0-1.0); %Eosinophils 4.8 % (0.0-10.0); %Lymphocytes 17.6 % (21.0-51.0); %Monocytes 10.7 % (0.0-10.0); %Neutrophils 66.1 % (42.0-75.0); Hemoglobin 10.3 g/dL (12.0-16.0); Mean Corpuscular HGB CONC 33.6 g/dL (32.0-36.0); Mean Corpuscular Hemoglobin 34.4 pg (27.0-31.0); Mean Platelet Volume 6.5 fL (7.4-10.4); Platelet Count 95 thou/uL (130-400); RBC Distribution Width 14.5 % (11.5-14.5); White Blood Cell (WBC) Count 6.8 thou/uL (4.8-10.8)
[2017-09-28 12:09] LABS: ALT (SGPT) 20 U/L (8-55); AST (SGOT) 41 U/L (5-34); Alkaline Phosphatase 200 U/L (40-150); Anion Gap 10 mmol/L (10-20); BUN (Urea Nitrogen) 26 mg/dL (9.8-20.1); Bilirubin, Total 4.3 mg/dL (0.2-1.2); CK (CPK) 27 U/L (29-168); Calc. Creatinine Clearance 0 mL/min (70-130); Calcium 8.6 mg/dL (7.8-10.44); Carbon Dioxide 24 mmol/L (23-31); Chloride 102 mmol/L (98-107); Estimated GFR-MDRD 32; Globulin 3.7 g/dL (2.4-3.5); Glucose 88 mg/dL (83-110); Potassium 3.4 mmol/L (3.5-5.1); Protein, Total 5.7 g/dL (6.0-8.3); Sodium 133 mmol/L (136-145)
[2017-09-28 12:21] LABS: CKMB 2.8 ng/mL (0-6.6)
[2017-09-28 12:27] LABS: Troponin I 0.372 ng/mL (< 0.028)
[2017-09-28 14:03] LABS: Bilirubin Negative (Negative); Blood, Urine Negative (Negative); Clarity CLOUDY (Clear); Glucose, Urine (Dipstick) Negative (Negative); Leukocyte Moderate (Negative); Nitrite Negative (Negative); Protein, Urine (Dipstick) Negative (Neg-Trace); Specific Gravity, Urine 1.014 (1.002-1.036); pH, Urine 5.5 (5.0-9.0)
[2017-09-28 14:05] LABS: Bacteria/HPF 4+ HPF (None Seen); Hyaline Casts/LPF 7-10 HYALINE CAST LPF (0-3 Hyaline); Pathc Cast-AUWi Flag 1.16 (0-2.49); RBC/HPF 0-3 HPF (0-3); Squamous Epithelial None Seen HPF (0-3); WBC/HPF 21-50 HPF (0-3)
[2017-09-28] MEDS ORDERED: Sodium Chloride 0.9% 1,000 ML IV SCH ×2 (14:30→18:20)
[2017-09-28 14:42] LABS: Prothrombin Time 23.6 SEC (12.0-14.7)
[2017-09-28 14:43] LABS: PTT 45.6 SEC (22.9-36.1)
[2017-09-28 15:04] LABS: Critical Call Chem Troponin I RESULT DECREASING; Troponin I 0.358 ng/mL (< 0.028)
[2017-09-28] MEDS ORDERED: Ondansetron ODT 4 MG TAB SL PRN (18:03)
[2017-09-28] MEDS ORDERED: Ondansetron PF 4 MG/2 ML Vial IVP PRN ×2 (18:03→18:20)
[2017-09-28] MEDS ORDERED: Acetaminophen 325 MG TAB PO PRN (18:03)
[2017-09-28 18:16] LABS: Critical Call Chem Troponin I RESULT DECREASING; Troponin I 0.354 ng/mL (< 0.028)
[2017-09-28] MEDS ORDERED: traMADol HCl 50 MG TAB PO PRN (18:20)
[2017-09-28] MEDS ORDERED: Dextrose 5% in Water 1,000 ML IV PRN (18:20)
[2017-09-28] MEDS ORDERED: Ondansetron ODT 4 MG TAB PO PRN (18:20)
[2017-09-28] MEDS ORDERED: Dextrose 50% Abboject 50 ML SYRINGE SLOW IVP PRN (18:20)
[2017-09-28] MEDS ORDERED: Insulin Regular 300 UNITS/3 ML VIAL SC PRN (18:20)
[2017-09-28] MEDS ORDERED: Prevnar 13-Val Conj/PF 0.5 ML SYRINGE IM ONE (18:45)
[2017-09-28 19:14] LABS: CKMB 2.6 ng/mL (0-6.6)
[2017-09-28 19:15] LABS: Critical Call Chem Troponin I RESULT DECREASING; Troponin I 0.333 ng/mL (< 0.028)
[2017-09-29] MEDS: diphenhydrAMINE 12.5 MG/5 ML UDCUP PO PRN ×2 (00:12→21:20)
[2017-09-29 03:12] LABS: #Basophils 0.1 thou/uL (0.0-0.2); #Eosinphils 0.3 thou/uL (0.0-0.7); #Lymphocytes 1.2 thou/uL (1.20-3.40); #Monocytes 0.6 thou/uL (0.11-0.59); #Neutrophils 3.2 thou/uL (1.40-6.50); %Basophils 1.4 % (0.0-1.0); %Eosinophils 6.2 % (0.0-10.0); %Lymphocytes 22.3 % (21.0-51.0); %Monocytes 10.3 % (0.0-10.0); %Neutrophils 59.8 % (42.0-75.0); Hemoglobin 8.2 g/dL (12.0-16.0); Mean Corpuscular HGB CONC 32.4 g/dL (32.0-36.0); Mean Corpuscular Hemoglobin 33.4 pg (27.0-31.0); Mean Platelet Volume 6.9 fL (7.4-10.4); Platelet Count 73 thou/uL (130-400); RBC Distribution Width 14.3 % (11.5-14.5); Red Blood Cell (RBC) Count 2.46 mill/uL (4.20-5.40); White Blood Cell (WBC) Count 5.3 thou/uL (4.8-10.8)
[2017-09-29 03:18] LABS: CKMB 2.2 ng/mL (0-6.6); Troponin I 0.264 ng/mL (< 0.028)
[2017-09-29 03:29] LABS: Hemoglobin A1c 3.9 % (4.0-6.0)
[2017-09-29 03:34] LABS: ALT (SGPT) 21 U/L (8-55); AST (SGOT) 42 U/L (5-34); Albumin 1.7 g/dL (3.4-4.8); Alkaline Phosphatase 165 U/L (40-150); BUN (Urea Nitrogen) 26 mg/dL (9.8-20.1); Bilirubin, Total 3.7 mg/dL (0.2-1.2); Calc. Creatinine Clearance 45 mL/min (70-130); Calcium 8.2 mg/dL (7.8-10.44); Carbon Dioxide 26 mmol/L (23-31); Chloride 102 mmol/L (98-107); Estimated GFR-MDRD 33; Globulin 3.2 g/dL (2.4-3.5); Glucose 77 mg/dL (83-110); Potassium 3.5 mmol/L (3.5-5.1); Protein, Total 4.9 g/dL (6.0-8.3); Sodium 132 mmol/L (136-145)
[2017-09-29 03:39] LABS: Anion Gap 8 mmol/L (10-20)
[2017-09-29] MEDS: Sodium Chloride 0.9% 1,000 ML IV SCH ×4 (07:04→17:39)
--- NOTE | 2017-09-29 07:53 | HP ---
DATE OF ADMISSION: 09/28/2017 PRIMARY CARE PHYSICIAN: Dr. Pedro Luis Singh CHIEF COMPLAINT: Weakness and dizziness. HISTORY OF PRESENT ILLNESS: Ms. Machado is a 77-year-old white female known to us from previous hosp italization. She was here from 08/29/2017 to 09/03/2017. She was admitted at that time for acute ki dney injury secondary to prerenal dehydration from her diuretics. She had worsening lower extremity edema and known cirrhosis secondary to nonalcoholic steatohepatitis with low albumin levels. She was diagnosed with fall with Dr. Ayala with Nephrology, Dr. العلي and her primary care physician. She states she has been doing okay since her discharge. She has had good response to medications and actually from 09/22/2017 to 09/26/2017 has dropped from 212-200 pounds even. They contacted her primary care office and the Physician Warranty Clerk there discontinued her afternoon a evening dose of Aldactone 25 mg, she is going to continue taking Lasix 20 b.i.d. and Aldactone q.a .m. She states she has not been eating or drinking really well, has been participating with certified adapted physical educator apy, last visit with them was on Friday, 2 days ago. At that time, she was able to get up and down w ork with physical therapy and occupational therapy without any difficulty. She states yesterday she did okay; however, today she was just too weak to get up. When she finally did get up, she felt dizzy. She states she felt like she was lightheaded, was going to pass out and abruptly got nauseated and threw up. She has not had any recurrence. Denies any vertiginous symptom s or dysequilibrium. She was brought to the emergency department for evaluation. His labs were okay. Creatinine 1.58, wh ich is around her baseline at present. BUN was 26, but her troponin was 0.372. We have no older to compare to. Her EKG is unchanged. She has had no chest pain, palpitations, or shortness of breath. No other current complaints. We have been called for further workup. The patient has no other current complaints. Daughters who help take care of her is not at bedside a t present. Her journal that is written in a spiral notebook is available, and I did look through sunny t. PAST MEDICAL HISTORY: 1. Nonalcoholic steatohepatitis with cirrhosis. 2. Diabetes mellitus type 2. 3. Hypertension. PAST SURGICAL HISTORY: Includes, 1. Cholecystectomy. 2. Tonsillectomy remotely. 3. Right TKA about 5 years ago. HOME MEDICATIONS: Per recent journal, 1. Lasix 20 mg p.o. b.i.d. 2. Aldactone 25 mg p.o. t.i.d., secondary dose has been on hold since 09/25/2017. 3. Levothyroxine 25 mcg daily. 4. Tramadol 50 mg p.o. q.6 h. p.r.n. 5. Omeprazole 40 mg daily. ALLERGIES: LATEX, NATURAL RUBBER, MORPHINE and SULFA. The patient states she no longer on lactulose . FAMILY HISTORY: Negative for clotting or bleeding disorder, no immune dysfunction. SOCIAL HISTORY: Significant for social alcohol, maybe once a month, otherwise negative for habits x3 . She lives at home and has a daughter to take care of her. REVIEW OF SYSTEMS: A 10-point review of systems was performed and negative for all systems except st ated as per HPI. PHYSICAL EXAMINATION: VITAL SIGNS: Temperature 98.3, pulse 80, blood pressure 145/55, respiratory rate 20, satting 100% on room air. GENERAL: She is awake. She is alert. She is oriented x3. She is a well-developed, well-nourished, elderly white female, appears stated age appropriate. HEENT: Normocephalic and atraumatic. Pupils equal and react to light bilaterally. She has mild val ateral scleral icterus. No hemorrhaging. NECK: Supple. There is no lymphadenopathy, JVD or thyromegaly. She has normal carotid upstrokes. I do not appreciate bruits. LUNGS: Clear to auscultation anteriorly, however, posteriorly she does have a faint bibasilar crackl es. These do not clear with deep inspiration. She has no wheezing, no rales, no rhonchi. No prolon ged expiratory phase. CARDIOVASCULAR: She has normal cardiac and regular. She has normal S1, S2. She has a faint 2/6 sys tolic ejection murmur at the right upper sternal border. There is no diastolic murmurs. ABDOMEN: Obese. It is nontender. I cannot elicit a fluid wave. There is no rebound, rigidity or g uarding. She has normoactive bowel sounds present in all 4 quadrants. EXTREMITIES: No cyanosis, no clubbing. She has 2+ edema to the mid tibial level just below her knee . SKIN: Warm, moist, and well perfused. She has no other rashes or lesions. NEUROLOGIC: Cranial nerves II-XII are grossly intact, she has normal speech pattern. She is oriente d x3, she has no focal deficits and 5/5 strength in all 4 extremities. MUSCULOSKELETAL: Normal to inspection. Large joints appear uninflamed. There is no palpable effusi ons. Good range of motion. LABORATORY DATA: Sodium 133, potassium 3.4, chloride 102, bicarbonate 24, BUN 26, creatinine 1.58, g lucose 88 and calcium 8.6. The liver functions showed a total bilirubin of 4.3, total protein of 5.7 , albumin of 2.0, alkaline phosphatase 200, AST barely elevated at 41 and normal ALT. CBC showed a white count of 6.8, hemoglobin is 10.3, hematocrit 30.7, platelet count is 95,000. Calc ulated GFR is 32. CK was normal at 27, CK-MB normal at 2.8, troponin I was elevated at 0.372 without prior to compare t o. BNP is slightly elevated at 165.5 and ammonia level was 66, which is upper limit of normal. ASSESSMENT AND PLAN: 1. Abnormal troponin: Creatinine clearance of around 30. Suspect this may be chronically elevated. We will get serial cardiac biomarkers. She has not had any chest symptoms at all. Watch on the mo nitor. She did get a dose of aspirin in the emergency department. 2. Chronic kidney disease stage 3: Currently her creatinine clearance is calculated at 32 via the M DRD. Not quite sure what her baseline is, but her BUN and creatinine is almost 20:1. Suspect she ma y be getting prerenal azotemia again. She is to have a 12-pound weight loss secondary to her diureti cs between 09/22/2017 and 09/26/2017 with cessation of two of her three daily dose of Aldactone 25 mg since 09/25/2017. We will give her a liter of bolus now and another one on arrival to the floor, st arted on IV fluids at 125 an hour and monitor response. 4. Weakness/dizziness: I will get PT and OT to evaluate her. I suspect as we get her fluid status normalized that she will feel better. 5. Nonalcoholic steatohepatitis with cirrhosis. She has low platelets, she has a PT/INR abnormaliti es with pending values just drawn from the ER. Continue Aldactone and Lasix once her fluid status is more normalized. 6. Diabetes mellitus type 2, non-insulin dependent. She is not any medications. I put her on diabe tic diet and watch sugars with sliding scale insulin. 7. Essential hypertension, Aldactone and Lasix. We will put these on hold are present. Watch her b lood pressure. 8. Gastroesophageal reflux disease, on omeprazole. We will continue. 9. Hypothyroidism, on levothyroxine. We will continue.
[2017-09-29] MEDS ORDERED: Sodium Chloride 0.9% 1,000 ML IV SCH (09:30)
--- NOTE | 2017-09-29 11:41 | PDOC.PN ---
- Subjective Encounter Start Date: 09/29/17 Encounter Start Time: 09:00 Pt did not get fluids as ordered. bead inspector concerned about edema and contacted laser engineer, who base don available information, ordered fluids to be held. Pt feels about the same, labs mildly improved while holding diuretics. Daughter at bedside, almost manic. updated to current condition and plans, fluids re-ordered and discussed with Nursing management no F/C, no N/V/D/c, no CP or SOB. 10 point ROS performed and neg for all systems except as per HPI - Objective Resuscitation Status: Resuscitation Status FULL:Full Resuscitation MAR Reviewed: Yes Vital Signs & Weight: Vital Signs (12 hours) Temp Pulse Resp BP Pulse Ox 09/29/17 08:00 98.0 F 78 17 121/57 L 92 L 09/29/17 04:00 98.2 F 73 18 93 L 09/29/17 00:00 98.2 F 75 18 132/59 L 94 L Weight Admit Weight 202 lb Weight 202 lb I&O: 09/28/17 09/29/17 09/30/17 06:59 06:59 06:59 Intake Total 200 120 Balance 200 120 Result Diagrams: 09/29/17 02:45 09/29/17 02:45 Radiology Reviewed by me: Yes EKG Reviewed by me: Yes Phys Exam - Physical Examination Constitutional: NAD HEENT: PERRLA, moist MMs, oral pharynx no lesions mild scleral icterus Neck: no nodes, no JVD, supple, full ROM Respiratory: no wheezing, no rales, no rhonchi, clear to auscultation bilateral Cardiovascular: RRR, no significant murmur, no rub Gastrointestinal: soft, non-tender, no distention, positive bowel sounds Musculoskeletal: pulses present, edema present Neurological: non-focal, normal sensation, moves all 4 limbs strength 4/5 Lymphatic: no nodes Psychiatric: normal affect, A&O x 3 Skin: no rash, normal turgor, cap refill <2 seconds Dx/Plan (1) Weakness Code(s): R53.1 - WEAKNESS Status: Acute Comment: likely related to her dehydration, possible ammonia of 66. daighter relates she was down to 40s while on laclulose. Hydrate, discuss lactulose with Dr Minor, hold lasix and aldactone for now (2) Moderate dehydration Code(s): E86.0 - DEHYDRATION Status: Acute Comment: as above. (3) CKD (chronic kidney disease) stage 3, GFR 30-59 ml/min Code(s): N18.3 - CHRONIC KIDNEY DISEASE, STAGE 3 (MODERATE) Status: Chronic Comment: Cr around baseline. recheck in AM (4) Cirrhosis Code(s): K74.60 - UNSPECIFIED CIRRHOSIS OF LIVER Status: Acute Qualifiers: Ascites presence: with ascites Comment: sec to SPENCE, Meld score of 28 on previous stay (5) Coagulopathy Status: Chronic Comment: due to liver disease (6) Diabetes type 2, controlled Code(s): E11.9 - TYPE 2 DIABETES MELLITUS WITHOUT COMPLICATIONS Status: Chronic Qualifiers: Diabetes mellitus fci insulin use: without supervisor instrument mechanics use Diabetes mellitus complication status: with unspecified complications Qualified Code(s) : E11.8 - Type 2 diabetes mellitus with unspecified complications (7) Hypertension Code(s): I10 - ESSENTIAL (PRIMARY) HYPERTENSION Status: Chronic Qualifiers: Hypertension type: essential hypertension Qualified Code(s): I10 - Essential (primary) hypertension (8) Hypothyroidism Code(s): E03.9 - HYPOTHYROIDISM, UNSPECIFIED Status: Chronic Qualifiers: Hypothyroidism type: unspecified Qualified Code(s): E03.9 - Hypothyroidism , unspecified - Plan cont current plan of care, plan discussed w/ family, PT/OT, respiratory therapy , out of bed/ambulate * .
[2017-09-29] MEDS: Acetaminophen 325 MG TAB PO PRN (21:20)
[2017-09-30 05:40] LABS: #Eosinphils 0.3 thou/uL (0.0-0.7); #Lymphocytes 1.2 thou/uL (1.20-3.40); #Monocytes 0.8 thou/uL (0.11-0.59); #Neutrophils 3.3 thou/uL (1.40-6.50); %Basophils 0.8 % (0.0-1.0); %Lymphocytes 21.4 % (21.0-51.0); %Monocytes 13.3 % (0.0-10.0); %Neutrophils 58.5 % (42.0-75.0); Hemoglobin 8.8 g/dL (12.0-16.0); Mean Corpuscular HGB CONC 32.6 g/dL (32.0-36.0); Mean Corpuscular Hemoglobin 33.4 pg (27.0-31.0); Mean Platelet Volume 6.5 fL (7.4-10.4); Platelet Count 89 thou/uL (130-400); RBC Distribution Width 14.2 % (11.5-14.5); Red Blood Cell (RBC) Count 2.62 mill/uL (4.20-5.40); White Blood Cell (WBC) Count 5.7 thou/uL (4.8-10.8)
[2017-09-30 05:43] LABS: ALT (SGPT) 17 U/L (8-55); AST (SGOT) 36 U/L (5-34); Albumin 1.8 g/dL (3.4-4.8); Alkaline Phosphatase 179 U/L (40-150); Anion Gap 7 mmol/L (10-20); BUN (Urea Nitrogen) 23 mg/dL (9.8-20.1); Bilirubin, Total 3.7 mg/dL (0.2-1.2); Calc. Creatinine Clearance 46 mL/min (70-130); Carbon Dioxide 25 mmol/L (23-31); Chloride 106 mmol/L (98-107); Estimated GFR-MDRD 34; Globulin 3.3 g/dL (2.4-3.5); Glucose 79 mg/dL (83-110); Potassium 3.3 mmol/L (3.5-5.1); Protein, Total 5.1 g/dL (6.0-8.3); Sodium 135 mmol/L (136-145)
[2017-09-30] MEDS: Sodium Chloride 0.9% 1,000 ML IV SCH ×3 (07:30→17:53)
[2017-09-30] MEDS: Levothyroxine Sodium 25 MCG TAB PO SCH (10:26)
--- NOTE | 2017-09-30 12:07 | PDOC.PN ---
- Subjective Encounter Start Date: 09/30/17 Encounter Start Time: 08:45 Pt seen and examined, second of three daughters present at bedside today, 50 minutes were spent at the bedside discussing disease state, progression, prognosis and plan. Pt sleeping a lot, but otherwise ok. Able to stand and take a few steps with TP. Paty distdakotae,d sore and cramp after lactulose, multiple BMs overnight. No appreciable son ein MS. no F/c, no N/V/D/c, no CP or SOB at present. 10 point ROS performed and neg for all systems except as per HPI - Objective Resuscitation Status: Resuscitation Status FULL:Full Resuscitation MAR Reviewed: Yes Vital Signs & Weight: Vital Signs (12 hours) Temp Pulse Resp BP Pulse Ox 09/30/17 08:00 98.5 F 85 18 137/64 85 L 09/30/17 04:00 97.8 F 74 20 144/63 H 94 L Weight Admit Weight 202 lb Weight 195 lb 11.2 oz I&O: 09/29/17 09/30/17 10/01/17 06:59 06:59 06:59 Intake Total 200 3310 Balance 200 3310 Result Diagrams: 09/30/17 05:22 09/30/17 05:22 Additional Labs: Accuchecks 09/30/17 09/29/17 09/29/17 05:42 21:11 16:53 POC Glucose 80 85 82 Radiology Reviewed by me: Yes EKG Reviewed by me: Yes Phys Exam - Physical Examination Constitutional: NAD HEENT: PERRLA, moist MMs, oral pharynx no lesions mild scleral icterus Neck: no nodes, no JVD, supple, full ROM Respiratory: no wheezing, no rales, no rhonchi, clear to auscultation bilateral Cardiovascular: RRR, no significant murmur, no rub HSM stable Gastrointestinal: soft, non-tender, positive bowel sounds hyperactive BS, distended Musculoskeletal: edema present Neurological: non-focal, normal sensation, moves all 4 limbs Lymphatic: no nodes Psychiatric: normal affect, A&O x 3 Skin: normal turgor, cap refill <2 seconds Deviation from normal: rash to doral feet bilaterally, more confluent today, extending to ankle Dx/Plan (1) Weakness Code(s): R53.1 - WEAKNESS Status: Acute Comment: likely related to her dehydration, possible ammonia of 66. daighter relates she was down to 40s while on laclulose. Hydrate, discuss lactulose with Dr Minor, hold lasix and aldactone for now. On IV fluids for alst 24 hours, up 4L. BP stable, no lightheaded when she stood. ammonia back to [address] Minor (2) Moderate dehydration Code(s): E86.0 - DEHYDRATION Status: Resolved Comment: as above. (3) CKD (chronic kidney disease) stage 3, GFR 30-59 ml/min Code(s): N18.3 - CHRONIC KIDNEY DISEASE, STAGE 3 (MODERATE) Status: Chronic Comment: Cr around baseline and dwon fron to 1.42. recheck in AM (4) Cirrhosis Code(s): K74.60 - UNSPECIFIED CIRRHOSIS OF LIVER Status: Acute Qualifiers: Ascites presence: with ascites Comment: sec to SPENCE, Meld score of 28 on previous stay, about 24 now (5) Coagulopathy Status: Chronic Comment: due to liver disease (6) Diabetes type 2, controlled Code(s): E11.9 - TYPE 2 DIABETES MELLITUS WITHOUT COMPLICATIONS Status: Chronic Qualifiers: Diabetes mellitus senior care insulin use: without roasterman use Diabetes mellitus complication status: with unspecified complications Qualified Code(s) : E11.8 - Type 2 diabetes mellitus with unspecified complications (7) Hypertension Code(s): I10 - ESSENTIAL (PRIMARY) HYPERTENSION Status: Chronic Qualifiers: Hypertension type: essential hypertension Qualified Code(s): I10 - Essential (primary) hypertension (8) Hypothyroidism Code(s): E03.9 - HYPOTHYROIDISM, UNSPECIFIED Status: Chronic Qualifiers: Hypothyroidism type: unspecified Qualified Code(s): E03.9 - Hypothyroidism , unspecified (9) Demand ischemia Code(s): I24.8 - OTHER FORMS OF ACUTE ISCHEMIC HEART DISEASE Status: Acute Comment: present on admit, trop peaked at 0.3xx. trending down. due to dehydration - Plan cont current plan of care, plan discussed w/ family, PT/OT, social media marketing specialist, out of bed/ambulate * .
[2017-09-30] MEDS: Rifaximin 550 MG TAB PO SCH (21:48)
[2017-09-30] MEDS: Hydrocortisone 1% Cream 1.5 GM Packet TOP SCH (21:49)
[2017-10-01] MEDS: Sodium Chloride 0.9% 1,000 ML IV SCH ×2 (03:17→10:25)
[2017-10-01 03:40] LABS: #Basophils 0.1 thou/uL (0.0-0.2); #Eosinphils 0.5 thou/uL (0.0-0.7); #Lymphocytes 1.1 thou/uL (1.20-3.40); #Monocytes 0.8 thou/uL (0.11-0.59); #Neutrophils 6.1 thou/uL (1.40-6.50); %Basophils 0.7 % (0.0-1.0); %Eosinophils 5.8 % (0.0-10.0); %Lymphocytes 12.8 % (21.0-51.0); %Monocytes 9.8 % (0.0-10.0); %Neutrophils 70.8 % (42.0-75.0); Hemoglobin 9.3 g/dL (12.0-16.0); Mean Corpuscular HGB CONC 31.9 g/dL (32.0-36.0); Mean Corpuscular Hemoglobin 33.9 pg (27.0-31.0); Platelet Count 84 thou/uL (130-400); RBC Distribution Width 14.5 % (11.5-14.5); Red Blood Cell (RBC) Count 2.73 mill/uL (4.20-5.40); White Blood Cell (WBC) Count 8.6 thou/uL (4.8-10.8)
[2017-10-01 04:03] LABS: ALT (SGPT) 18 U/L (8-55); AST (SGOT) 33 U/L (5-34); Albumin 1.7 g/dL (3.4-4.8); Alkaline Phosphatase 167 U/L (40-150); Anion Gap 9 mmol/L (10-20); BUN (Urea Nitrogen) 23 mg/dL (9.8-20.1); Bilirubin, Total 3.5 mg/dL (0.2-1.2); Calc. Creatinine Clearance 46 mL/min (70-130); Carbon Dioxide 23 mmol/L (23-31); Chloride 108 mmol/L (98-107); Estimated GFR-MDRD 35; Globulin 3.2 g/dL (2.4-3.5); Glucose 76 mg/dL (83-110); Magnesium 1.4 mg/dL (1.6-2.6); Potassium 3.5 mmol/L (3.5-5.1); Protein, Total 4.9 g/dL (6.0-8.3); Sodium 136 mmol/L (136-145)
--- NOTE | 2017-10-01 09:07 | CON ---
DATE OF CONSULTATION: 09/30/2017 GI CONSULTATION HISTORY OF PRESENT ILLNESS: Ms. Machado is a 61-year-old female well known to me from the office and previous evaluations, signs of cirrhosis secondary to nonalcoholic fatty liver disease, presented to me last year with anasarca, edema and abdominal discomfort. CAT scan revealed cirrhotic liver and a nasarca as well as small amount of ascites. Ultimately, she had an EGD showing grade 1 varices, scre ening colonoscopy with some polyps. She has had some issues with encephalopathy. Recently, she has been admitted to the hospital 08/29/2017 through 09/03/2017 with prerenal azotemia and dehydration re lated to diuresis that when she went home and she was discharged on lactulose, , levothyroxine, and lidocaine patch, her diuretics were held. She did go to rehabilitation for a time, she was readm itted on 09/28/2017. One of her daughters who takes care of her, the main daughter that take care of her is getting out of the country and she has been out. The patient's daughter noted on Fri day she lost from 212-200 pounds else from the 4 through the . The [employer] [employer] in my offi ce discontinued her after an evening dose of Aldactone at that time and one of her Lasix doses. Appa rent, the patient has been doing well on physical therapy and she has been drinking pretty well until last Friday, she had some improvement on Friday, but was seen to be more confused and would not get up to walk and therefore, the family brought her in the ambulance and EMS. Her labs are stable in [facility] emergency room. BUN was 26, creatinine was 1.58, she was on baseline. Troponin was mildly elevate d at 0.372. She has no chest pain and EKG was unchanged. She was admitted for rule out PR apparentl y. The main issue really been she has not been eating much at home and that she probably a little bi t over diuresed with not eating or drinking. PAST MEDICAL HISTORY: Nonalcoholic steatohepatitis, diabetes type 2, and hypertension. PAST SURGICAL HISTORY: Cholecystectomy, tonsillectomy, BKA right years ago. HOME MEDICATIONS: Lasix 20 b.i.d., Aldactone 25 t.i.d. which has been hold since , levothyroxin e, tramadol, and omeprazole. ALLERGIES: NATURAL RUBBER, LATEX, MORPHINE, SULFA. She feels that LACTULOSE makes her nauseated. FAMILY HISTORY: Negative for liver disease. SOCIAL HISTORY: Known for social alcohol in the past, may be once a month and negative now. She chuckie es at home and daughter is taking care of her. REVIEW OF SYSTEMS: Negative for headache. She denies dysuria, frequency, or urgency. PHYSICAL EXAMINATION: VITAL SIGNS: Blood pressure 145/55 on admission, temperature 98.3. Presently, temperature 98, pulse is 87-106, respirations 18, and blood pressure 130/60. LUNGS: Clear. HEART: Regular rate and rhythm. ABDOMEN: Protuberant. There is anasarca. There is edema in the flanks and back. EXTREMITIES: Reveal edema. She has got a rash on top of her feet, it was pruritic. LABORATORY DATA: White count is 5.7, hemoglobin 8.8, platelet count 89,000. Differential normal. I NR is 2 on the 8th. Sodium 135, potassium 3.7, BUN and creatinine are 23 and 1.49, glucose 79. Bili alcantara 3.7. AST 36, ALT 17, alkaline phosphatase 179, protein 5.1, albumin 1.8, ammonia 44 today. PRESENT MEDICATIONS: Here in the hospital, Tylenol, dextrose, Benadryl, glucagon, Humalog, lactulose , Synthroid, Zofran, Protonix, Ultram. ASSESSMENT: Hepatic encephalopathy, not really a very high ammonia level, but she has got issues wit h some confusion. RECOMMENDATIONS: 1. She has nausea with lactulose, lets stop it and put her on Xifaxan. We will also stop the Benadr yl as that is going to make her very sleepy. 2. We will get ultrasound guided paracentesis tomorrow to make sure she does not have spontaneous ba cterial peritonitis. It is not really a clear reason why she became dehydrated at home and stopped e ating, we need to make sure there is no spontaneous bacterial peritonitis ifshe has significant flui d. We will start with those two issues and move on from there. I did discuss the family her grave p rognosis and her deterioration even since I have been seeing her, which began in the fall of 2016.
[2017-10-01] MEDS: Levothyroxine Sodium 25 MCG TAB PO SCH (09:47)
[2017-10-01] MEDS: Hydrocortisone 1% Cream 1.5 GM Packet TOP SCH ×2 (09:48→20:19)
[2017-10-01] MEDS: Rifaximin 550 MG TAB PO SCH ×2 (09:49→21:32)
[2017-10-01 12:51] LABS: BF Color Yellow; Body Fluid Source Ascites Body Fluid; Clarity Clear (Clear); Tube # EDTA
[2017-10-01 13:19] LABS: BF RBC Count - Manual 75 /cumm; BF WBC/Nonhematics Ct. - Manua 20 /cumm
--- NOTE | 2017-10-01 13:20 | PRG ---
DATE OF SERVICE: 10/01/2017 Ms. Machado is without complaints. She has 6 liters removed by paracentesis today. PHYSICAL EXAMINATION: VITAL SIGNS: Blood pressure 100/73 to 94/44, temperature 97. ABDOMEN: Soft and nontender. LUNGS: Clear. EXTREMITIES: Extremities reveal some edema and anasarca. NEUROLOGIC: She is alert and oriented. Her affect is flat. LABORATORY STUDIES: White count 8.6, hemoglobin 9.3, platelet count 84,000. INR was 2 and 8, BUN an d creatinine 23 and 1.4 today, sodium is 136, magnesium 1.4, bilirubin 3.5, ammonia 63. Alkaline daily sphatase 176. Peritoneal fluid cell count pending. ASSESSMENT: 1. Admission with dehydration, improved. 2. Anorexia, some of this may be related to her lactulose, but I think another component is largely depression. She has had previous imaging and CAT scan. She has had endoscopies in the past 6 months . She is up to date on colorectal cancer screening as well as hepatoma screening. 3. Ascites status post paracentesis to rule out spontaneous bacterial peritonitis. RECOMMENDATIONS: 1. Albumin today and then hold fluids. 2. Continue Xifaxan instead of lactulose. 3. Continue p.o. intake, ambulation, physical therapy. If she really cannot eat and does not want t o eat, it may be reasonable to consider an antidepressant, also it would be reasonable to consider pa lliative care.
--- NOTE | 2017-10-01 13:47 | PDOC.PN ---
- Subjective Encounter Start Date: 10/01/17 Encounter Start Time: 09:15 Pt seen and exmained, case discussed with family and case discussed with Dr Minor Face to face. Pt having paracentesis today, Xifaxan started in lieu of lactulose no F/c,no N/V/D/C, no CP, no SOB, no cough or sputum. thirsty, but currently NPO Paracentesis done since initial visit, 20WBC. not SBP. 10 point ROs performed and neg for all systems except as per HPI - Objective Resuscitation Status: Resuscitation Status DNR:Do Not Resuscitate MAR Reviewed: Yes Vital Signs & Weight: Vital Signs (12 hours) Temp Pulse Pulse Resp BP BP Pulse Ox 10/01/17 12:20 97.1 F L 85 17 94/44 L 97 10/01/17 10:00 85 117/56 L 10/01/17 08:00 98.2 F 82 18 107/53 L 94 L 10/01/17 04:00 98.0 F 82 20 126/62 95 Weight Admit Weight 202 lb Weight 195 lb 11.2 oz I&O: 09/30/17 10/01/17 10/02/17 06:59 06:59 06:59 Intake Total 3310 3440 Balance 3310 3440 Result Diagrams: 10/01/17 03:34 10/01/17 03:34 Additional Labs: Accuchecks 10/01/17 09/30/17 09/30/17 05:39 20:42 16:54 POC Glucose 71 87 85 Radiology Reviewed by me: Yes EKG Reviewed by me: Yes Phys Exam - Physical Examination Constitutional: NAD HEENT: PERRLA, moist MMs, oral pharynx no lesions mild icterus Neck: no nodes, no JVD, supple, full ROM Respiratory: no wheezing, no rales, no rhonchi, clear to auscultation bilateral Cardiovascular: RRR, no rub murmur stable Gastrointestinal: soft, non-tender, positive bowel sounds distended Musculoskeletal: pulses present, edema present Neurological: non-focal, normal sensation, moves all 4 limbs Lymphatic: no nodes Psychiatric: normal affect Skin: no rash, normal turgor, cap refill <2 seconds Dx/Plan (1) Weakness Code(s): R53.1 - WEAKNESS Status: Acute Comment: likely related to her dehydration, possibly ammonia of 66. daighter relates she was down to 40s while on laclulose. Hydrate, discuss lactulose with Dr Minor, hold lasix and aldactone for now. On IV fluids for alst 24 hours, up 4L. BP stable, no lightheaded when she stood. ammonia back to 44 4/10, 60s again today, started on Xifaxan. Discussed with Dr Minor (2) Moderate dehydration Code(s): E86.0 - DEHYDRATION Status: Resolved Comment: as above. high rish for reoccurance. decrease IVF to 75/hour (3) CKD (chronic kidney disease) stage 3, GFR 30-59 ml/min Code(s): N18.3 - CHRONIC KIDNEY DISEASE, STAGE 3 (MODERATE) Status: Chronic Comment: Cr around baseline and down from 1/58 to 1.44. recheck in AM (4) Cirrhosis Code(s): K74.60 - UNSPECIFIED CIRRHOSIS OF LIVER Status: Acute Qualifiers: Ascites presence: with ascites Comment: sec to SPENCE, Meld score of 28 on previous stay, about 24 now, fluid with only 20 WBC, not SBP, (5) Coagulopathy Status: Chronic Comment: due to liver disease (6) Diabetes type 2, controlled Code(s): E11.9 - TYPE 2 DIABETES MELLITUS WITHOUT COMPLICATIONS Status: Chronic Qualifiers: Diabetes mellitus jail insulin use: without jail use Diabetes mellitus complication status: with unspecified complications Qualified Code(s) : E11.8 - Type 2 diabetes mellitus with unspecified complications (7) Hypertension Code(s): I10 - ESSENTIAL (PRIMARY) HYPERTENSION Status: Chronic Qualifiers: Hypertension type: essential hypertension Qualified Code(s): I10 - Essential (primary) hypertension (8) Hypothyroidism Code(s): E03.9 - HYPOTHYROIDISM, UNSPECIFIED Status: Chronic Qualifiers: Hypothyroidism type: unspecified Qualified Code(s): E03.9 - Hypothyroidism , unspecified (9) Demand ischemia Code(s): I24.8 - OTHER FORMS OF ACUTE ISCHEMIC HEART DISEASE Status: Acute Comment: present on admit, trop peaked at 0.3xx. trending down. due to dehydration - Plan cont current plan of care, plan discussed w/ family, PT/OT, out of bed/ambulate * .
--- NOTE | 2017-10-01 13:58 | ULT ---
ULTRASOUND GUIDED PARACENTESIS: Date: 10/01/17 HISTORY: Ascites. COMPARISON: None. FINDINGS: Technically successful ultrasound guided paracentesis. A total of 6 liters of yellow-colored ascites was aspirated. There were no immediate or postprocedure complications. TECHNIQUE: Consent obtained to perform an ultrasound guided paracentesis. The patient's abdomen was evaluated. R ight lower quadrant was deemed appropriate. Skin was prepped and draped in the sterile fashion. 1% li docaine, buffered with sodium bicarbonate, was used for local anesthesia. Under ultrasound guidance, a 5 Maltese 7.0 cm Cortriumeh catheter was advanced into the peritoneal space. Via vacuum bottles, a total o f 6 liters of yellow-colored ascites was aspirated. The patient tolerated the procedure well. No imme diate or postprocedure complication. IMPRESSION: Successful ultrasound guided paracentesis. POS: [facility]
[2017-10-01] MEDS: Albumin 25% 25 GM/100 ML BOT IVPB SCH ×2 (14:21→21:32)
[2017-10-01 14:32] LABS: Cell Count Non Hematic 68 %; Lymphocytes 32 %
[2017-10-01] MEDS: Acetaminophen 325 MG TAB PO PRN (23:57)
[2017-10-02] MEDS: Albumin 25% 25 GM/100 ML BOT IVPB SCH ×3 (05:18→21:16)
[2017-10-02] MEDS: Sodium Chloride 0.9% 1,000 ML IV SCH ×2 (05:18→14:34)
[2017-10-02 07:58] LABS: Anion Gap 9 mmol/L (10-20); BUN (Urea Nitrogen) 26 mg/dL (9.8-20.1); Calc. Creatinine Clearance 47 mL/min (70-130); Calcium 8.1 mg/dL (7.8-10.44); Carbon Dioxide 23 mmol/L (23-31); Chloride 108 mmol/L (98-107); Estimated GFR-MDRD 36; Glucose 82 mg/dL (83-110); Potassium 3.4 mmol/L (3.5-5.1); Sodium 137 mmol/L (136-145)
[2017-10-02 08:23] VITALS: BMI 33.5
[2017-10-02] MEDS: Hydrocortisone 1% Cream 1.5 GM Packet TOP SCH ×2 (09:33→21:15)
[2017-10-02] MEDS: Rifaximin 550 MG TAB PO SCH ×2 (09:33→21:15)
[2017-10-02] MEDS: Levothyroxine Sodium 25 MCG TAB PO SCH (09:33)
--- NOTE | 2017-10-02 15:46 | PDOC.PN ---
- Subjective Encounter Start Date: 10/02/17 Encounter Start Time: 10:10 Pt feeling a little better, having a good morning. Paracentesis with 6L fluid removed, no sign of infection Better appetite, wants a hamburger, no f/c, no N/V/D/c, no Cp or SOB 10 point ROS performed and neg except as per HPI - Objective Resuscitation Status: Resuscitation Status DNR:Do Not Resuscitate Vital Signs & Weight: Vital Signs (12 hours) Temp Pulse Resp BP Pulse Ox 10/02/17 12:10 98.2 F 72 16 112/53 L 96 10/02/17 09:15 97.9 F 74 16 96 10/02/17 07:52 97.9 F 74 16 115/58 L 96 10/02/17 04:00 97.8 F 77 16 112/56 L 95 Weight Admit Weight 202 lb Weight 195 lb I&O: 10/01/17 10/02/17 10/03/17 06:59 06:59 06:59 Intake Total 3440 2320 Balance 3440 2320 Result Diagrams: 10/01/17 03:34 10/02/17 06:30 Additional Labs: Accuchecks 10/02/17 10/02/17 10/01/17 10:48 05:54 20:52 POC Glucose 103 85 131 H 10/01/17 16:33 POC Glucose 85 Radiology Reviewed by me: Yes Phys Exam - Physical Examination Constitutional: NAD HEENT: PERRLA, moist MMs, oral pharynx no lesions mild icterus Neck: no nodes, no JVD, supple, full ROM Respiratory: no wheezing, no rales, no rhonchi, clear to auscultation bilateral Cardiovascular: RRR, no significant murmur, no rub Gastrointestinal: soft, non-tender, no distention, positive bowel sounds Musculoskeletal: pulses present, edema present Neurological: non-focal, normal sensation, moves all 4 limbs Lymphatic: no nodes Psychiatric: normal affect, A&O x 3 Skin: no rash, normal turgor, cap refill <2 seconds Dx/Plan (1) Weakness Code(s): R53.1 - WEAKNESS Status: Acute Comment: likely related to her dehydration, possibly ammonia of 66. daighter relates she was down to 40s while on laclulose. Hydrate, discuss lactulose with Dr Minor, hold lasix and aldactone for now. On IV fluids for alst 24 hours, up 4L. BP stable, no lightheaded when she stood. ammonia back to 44 4, 60s again today, started on Xifaxan. overall looks a little better, follow up on PT. recommended SNF for rehab, but pt ambivolent at present, will follow up after PT eval today (2) Moderate dehydration Code(s): E86.0 - DEHYDRATION Status: Resolved Comment: as above. high risk for reoccurance. d/C IVF (3) CKD (chronic kidney disease) stage 3, GFR 30-59 ml/min Code(s): N18.3 - CHRONIC KIDNEY DISEASE, STAGE 3 (MODERATE) Status: Chronic Comment: Cr around baseline and down from to 1.41. recheck in AM (4) Cirrhosis Code(s): K74.60 - UNSPECIFIED CIRRHOSIS OF LIVER Status: Acute Qualifiers: Ascites presence: with ascites Comment: sec to SPENCE, Meld score of 28 on previous stay, about 24 now, fluid with only 20 WBC, not SBP, (5) Coagulopathy Status: Chronic Comment: due to liver disease (6) Diabetes type 2, controlled Code(s): E11.9 - TYPE 2 DIABETES MELLITUS WITHOUT COMPLICATIONS Status: Chronic Qualifiers: Diabetes mellitus nursing home insulin use: without nursing home use Diabetes mellitus complication status: with unspecified complications Qualified Code(s) : E11.8 - Type 2 diabetes mellitus with unspecified complications (7) Hypertension Code(s): I10 - ESSENTIAL (PRIMARY) HYPERTENSION Status: Chronic Qualifiers: Hypertension type: essential hypertension Qualified Code(s): I10 - Essential (primary) hypertension (8) Hypothyroidism Code(s): E03.9 - HYPOTHYROIDISM, UNSPECIFIED Status: Chronic Qualifiers: Hypothyroidism type: unspecified Qualified Code(s): E03.9 - Hypothyroidism , unspecified (9) Demand ischemia Code(s): I24.8 - OTHER FORMS OF ACUTE ISCHEMIC HEART DISEASE Status: Acute Comment: present on admit, trop peaked at 0.3xx. trending down. due to dehydration - Plan cont current plan of care, plan discussed w/ family, PT/OT, executive secretary social welfare, out of bed/ambulate * .
[2017-10-03] MEDS: Albumin 25% 25 GM/100 ML BOT IVPB SCH ×2 (05:44→14:55)
[2017-10-03] MEDS: Hydrocortisone 1% Cream 1.5 GM Packet TOP SCH (09:48)
[2017-10-03] MEDS: Levothyroxine Sodium 25 MCG TAB PO SCH (09:48)
[2017-10-03] MEDS: Rifaximin 550 MG TAB PO SCH (09:48)
[2017-10-03] MEDS ORDERED: hydrOXYzine 25 MG TAB PO PRN (10:10)
--- NOTE | 2017-10-03 14:37 | DIS ---
DATE OF ADMISSION: 09/28/2017 DATE OF DISCHARGE: 10/03/2017 PRIMARY CARE PHYSICIAN: Pedro Luis Singh D.O. PRIMARY IMPROVEMENT AUDITOR: Daljit Minor M.D. DISCHARGE DIAGNOSES: 1. Severe dehydration secondary to diuretics and decreased intake. 2. Nonalcoholic steatohepatitis. 3. Cirrhosis secondary to her nonalcoholic steatohepatitis. 4. Metabolic encephalopathy. 5. Hyperammonemia. 6. Physical deconditioning. 7. Diabetes mellitus type 2. 8. Generalized weakness secondary to deconditioning. 9. Ascites secondary to cirrhosis. 10. Essential hypertension. 11. Coagulopathy secondary to cirrhosis. 12. Chronic kidney disease stage 3. 13. Hypothyroidism. 14. Demand ischemia, present on admission. CONSULTATIONS: Gastroenterology, Dr. Daljit Minor. PROCEDURES PERFORMED: Ultrasound-guided paracentesis 10/01/2017 with removal of 6 liters of peritone al fluid. HOSPITAL COURSE: Ms. Machado is a 77-year-old female who presented in the emergency department on with complaints of weakness and dizziness. She has been here from 08/29/2017 to 09/03/2017 at what time she was diagnosed with acute kidney injury secondary to prerenal dehydration, and edema secondary to her cirrhosis and hypoalbuminemia. She presented on 09/28/2017 for evaluation for sever al days of decreasing activity despite being home with physical therapy and on the day of admission a ctually got lightheaded and dizzy and presyncopal prior to coming in. She got to the point where she was not getting up and ambulating for the 24 hours prior to admission secondary to weakness and pres yncope. EMS was called. She was brought to the emergency department. Here, she was found to have normal vital signs and respiratory rate with a satting 100% sats on room air. She was certainly weak and tired looking. Her troponin was elevated at 0.372, BNP was slightly elevated at 165, ammonia level was 66. Her creatinine was slightly above her baseline around 1.8. She has been on Aldactone 25 mg t.i.d. and Lasix 20 b.i.d. until one day prior to admission, it has b een decreased to a single dose of Lasix and Aldactone the morning. Review of the patient's intake an d out take showed only taking about 700 calories a day, and drinking one maybe 20-ounce bottles of wa ter total for 24-hour. She had decreased appetite secondary to early satiety. She denies any fevers or chills, she had some nausea and occasional vomiting, but this was just anorexia. She has no other complaints. We were called to evaluate and admit. HOSPITAL COURSE: The patient was seen and examined by me in the emergency department. The above history was confirmed. She was placed initially in observation overnight and hydrated with IV fluids. Her diuretics were held. Overnight 09/28/2017 to 09/29/2017, she was feeling better. Family at the bedside were particularly concerned about a petechial type rash present on her feet. The patient was given IV fluids and diure tics will continue to be held and her home medications were otherwise continued. I gave her a single dose of lactulose that evening secondary to her hyperammonemia, however, she had abdominal pain, pool sea, and vomiting, and about 10 bowel movements per 24-hour period. Lactulose was further held at that point. I did speak with Dr. Minor on 09/30/2017, he agreed to come see the patient. I had a long discussio n with him regarding prognosis and irreversibility of some of the inner organs. They initially consi yasemin hospice, but Dr. Minor felt it might be little premature, so decided to hold off. Physical therapy was ordered who were unable to get the patient to do much the first day other than j ust stand. By 10/01/2017, she continued to improve. She stood with physical therapy, was able to wa lk a few steps and back to her bed for the first time in days. Her labs were stable and she has been switched over to Xifaxan b.i.d. by Dr. Minor. We elected not to put her back on lactulose due to h er significant response. Creatinine slowly trended down to the 1.4 range, liver functions were hector l, electrolytes remain normal. By 10/02/2017, she was able to ambulate around 40 feet to and from the door in her room. Mental status most of the time was better, she was sleeping better. She was actu ally feeling hungry. She had undergone ultrasound-guided paracentesis the day prior and post-paracen tesis was feeling better. White count from the fluid only showed a white count of 20 and no signs of infection. Arrangements were made for the patient to transition to home versus half-way facility. Physic al therapy did see her later on 10/02/2017 and per their recommendation to home with physical therapy and the patient was a refusal of any half-way facility placement. Today, she was probably at her baseline, she is able to get up and walk with physical therapy and did well even on stairs. She was stable for discharge with outpatient followup. DISCHARGE MEDICATIONS: 1. Hydroxyzine 12.5 mg p.o. q.i.d. 2. Levothyroxine 25 mcg daily. 3. Protonix 40 mg daily. 4. Xifaxan 550 mg p.o. b.i.d. 5. Lidocaine patch 5% 1 patch transdermal daily at 2100 to continue. 6. Her Aldactone and Lasix have been stopped. PHYSICAL EXAMINATION: The patient was seen and examined on the day of discharge. Discharge plan and disposition was discussed with the patient, the patient's daughter face to face at bedside. DISCHARGE CONDITION: Stable. DISPOSITION: Will be discharged home via private vehicle with [facility] for physical therapy, occupational therapy, and speech therapy. DISCHARGE ACTIVITY: As tolerated. DISCHARGE DIET: No restrictions at this point. FOLLOWUP APPOINTMENTS: 1. Dr. Pedro Luis Singh within a week. 2. Dr. Minor per his clinic schedule.
[2017-10-03 19:45] VITALS: BP 149/67; TEMP 97.8
== END 2017-10-03 16:51 | DRG 640 ==
LOC: ERS 11:13 → 2NO 17:49
PROVIDERS: ADMIT Internal Medicine Infectious Disease; ATTEND Internal Medicine Infectious Disease
PROC: 0W9G3ZZ Drainage of Peritoneal Cavity, Percutaneous Approach (ICD-10-PCS; principal; 2017-10-01)
DX: E86.0 Dehydration (principal); G93.41 Metabolic encephalopathy; N17.9 Acute kidney failure, unspecified; E72.20 Disorder of urea cycle metabolism, unspecified; E11.22 Type 2 diabetes mellitus with diabetic chronic kidney disease; D68.9 Coagulation defect, unspecified; I24.8 Other forms of acute ischemic heart disease; N18.3 Chronic kidney disease, stage 3 (moderate); R18.8 Other ascites; K75.81 Nonalcoholic steatohepatitis (NASH); K74.69 Other cirrhosis of liver; R53.1 Weakness; I12.9 Hypertensive chronic kidney disease with stage 1 through stage 4 chronic kidney disease, or unspecified chronic kidney disease; E03.9 Hypothyroidism, unspecified; R55 Syncope and collapse; Z90.49 Acquired absence of other specified parts of digestive tract; Z88.5 Allergy status to narcotic agent; Z88.2 Allergy status to sulfonamides; Z88.8 Allergy status to other drugs, medicaments and biological substances; Z91.040 Latex allergy status; K21.9 Gastro-esophageal reflux disease without esophagitis; R63.0 Anorexia; Z79.4 Long term (current) use of insulin
CPT/HCPCS: 36415; 36416; 49083; 51701; 80048; 80053; 81003; 81015; 82105; 82140; 82550; 82553; 83036; 83735; 83880; 84484; 85025; 85060; 85610; 85730; 89051; 93005; 94760; A4353; G8978-GP-CL; G8979-GP-CI; G8987-GO-CL; G8988-GO-CJ; P9047; Q0162

== ENCOUNTER 2017-10-28 13:14 | Day surgery (SDC) | payer MEDICARE ==
[2017-10-28] MEDS ORDERED: PROPOFOL 200 MG/20 ML VIAL ONE (13:27)
[2017-10-28] MEDS ORDERED: Lidocaine 1% PF 5 ML VIAL ONE (13:27)
[2017-10-28] MEDS ORDERED: Ketamine 50 MG/ML VIAL ONE (14:17)
[2017-10-28 14:19] LABS: #Basophils 0.1 thou/uL (0.0-0.2); #Eosinphils 0.4 thou/uL (0.0-0.7); #Lymphocytes 0.9 thou/uL (1.20-3.40); #Monocytes 0.6 thou/uL (0.11-0.59); #Neutrophils 4.5 thou/uL (1.40-6.50); %Basophils 1.4 % (0.0-1.0); %Eosinophils 5.6 % (0.0-10.0); %Lymphocytes 14.5 % (21.0-51.0); %Monocytes 9.1 % (0.0-10.0); %Neutrophils 69.4 % (42.0-75.0); Hemoglobin 8.4 g/dL (12.0-16.0); Platelet Count 89 thou/uL (130-400); RBC Distribution Width 14.3 % (11.5-14.5); Red Blood Cell (RBC) Count 2.48 mill/uL (4.20-5.40); White Blood Cell (WBC) Count 6.5 thou/uL (4.8-10.8)
[2017-10-28 14:24] LABS: INR-International Normal Ratio 2.4; Prothrombin Time 26.6 SEC (12.0-14.7)
[2017-10-28 14:40] LABS: Anion Gap 9 mmol/L (10-20); BUN (Urea Nitrogen) 18 mg/dL (9.8-20.1); Calc. Creatinine Clearance 0 mL/min (70-130); Calcium 8.6 mg/dL (7.8-10.44); Carbon Dioxide 25 mmol/L (23-31); Chloride 105 mmol/L (98-107); Estimated GFR-MDRD 36; Glucose 107 mg/dL (83-110); Potassium 4.2 mmol/L (3.5-5.1); Sodium 135 mmol/L (136-145)
[2017-10-28] MEDS ORDERED: Sodium Chloride 0.9% 10 ML ONE (14:50)
[2017-10-28] MEDS ORDERED: Albumin 25% 100 ML ONE (14:54)
[2017-10-28 17:36] LABS: BF Color Yellow; Body Fluid Source Ascites Body Fluid; Clarity Hazy (Clear); Tube # EDTA
[2017-10-28 17:37] LABS: BF RBC Count - Manual 162 /cumm; BF WBC/Nonhematics Ct. - Manua 27 /cumm
[2017-10-28 18:33] LABS: BF Segmented Neutrophils 2 %; Cell Count Non Hematic 72 %; Lymphocytes 26 %
--- NOTE | 2017-10-28 18:34 | ULT ---
ULTRASOUND GUIDED PARACENTESIS: Date: 10-28-17 History: Ascites. Technique: Informed consent was obtained and the patient placed on the sonography table in the supine position. Limited sonographic evaluation of the abdomen was performed. An area in the midaxillary line left mid abdomen was marked and then meticulously prepped and draped in the usual sterile fashion. Skin and subcutaneous tissues were infiltrated with buffered 1% Lidocaine for local anesthesia. Small skin incision was made. Utilizing concurrent real-time ultrasound guidance a 19 gauge Coda[employer]ation needle wi th 5 Divehi sheath was advanced into the abdomen utilizing sonographic guidance. After the return of fluid, the needle was removed and the catheter was advanced. Approximately 5 L of clear straw colored fluid was aspirated. Patient was administered 25 grams of albumin during the exam as requested. Afte r aspiration of 5 L of fluid, the catheter was removed and hemostatis was achieved with direct pressu re. Dry sterile dressing was placed at the puncture site. Post procedure imaging demonstrates residua l moderate amount of retroperitoneal free fluid. IMPRESSION: Technically successful ultrasound guided paracentesis. POS: TAMARA
--- NOTE | 2017-10-28 21:03 | OP ---
PREOPERATIVE DIAGNOSES: 1. Cirrhosis. 2. Anorexia and patient refuses to eat. POSTPROCEDURE DIAGNOSES: 1. 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 2. I suspect that symptoms were related to depression, possibly some portal hypertension. RECOMMENDATIONS: 1. She will have an elective paracentesis today and then go back to rehabilitation. 2. She can follow up in our office as scheduled in 2 weeks. 3. Continue present medications. ANESTHESIA: TIVA. PROCEDURE IN DETAIL: After the patient was informed of the risks, benefits, possible complications o f endoscopy including perforation, bleeding, reactions to medication and aspiration, informed consent was obtained. The patient was brought to endoscopy suite where she was prepped and draped in standa rd fashion. Once she was comfortable, a bite block was placed in incisural orifice. The endoscope w as advanced through the esophagus, stomach and second and third portion of duodenum and slowly remove d. There was good visualization of mucosa. The esophagus is notable for grade II varices, no stigma ta of bleeding, two columns. The stomach was notable for grade I portal hypertensive gastropathy wit h no evidence of varices in the stomach. There was normal sensibility. There are no ulcers or erosi ons. The duodenum was normal to the third portion. The scope was removed. The patient tolerated th e procedure well with no complications.
== END 2017-10-28 17:18 | disposition home or self-care (01) ==
LOC: SDC 13:14
PROVIDERS: ATTEND Internal Medicine Gastroenterology
PROC: 0W9G3ZX Drainage of Peritoneal Cavity, Percutaneous Approach, Diagnostic (ICD-10-PCS; principal; 2017-10-28)
PROC: BW40ZZZ Ultrasonography of Abdomen (ICD-10-PCS; 2017-10-28)
PROC: 0DJ08ZZ Inspection of Upper Intestinal Tract, Via Natural or Artificial Opening Endoscopic (ICD-10-PCS; 2017-10-28)
DX: K74.60 Unspecified cirrhosis of liver (principal); R18.8 Other ascites; R63.0 Anorexia; I85.00 Esophageal varices without bleeding; K76.6 Portal hypertension; K31.89 Other diseases of stomach and duodenum; F32.9 Major depressive disorder, single episode, unspecified; I12.9 Hypertensive chronic kidney disease with stage 1 through stage 4 chronic kidney disease, or unspecified chronic kidney disease; E11.22 Type 2 diabetes mellitus with diabetic chronic kidney disease; N18.3 Chronic kidney disease, stage 3 (moderate); Z88.2 Allergy status to sulfonamides; Z88.5 Allergy status to narcotic agent; Z91.040 Latex allergy status; Z79.899 Other long term (current) drug therapy; Z98.890 Other specified postprocedural states
CPT/HCPCS: 43235; 49083; 80048; 85025; 85610; 89051; P9047; 36415; 85060; A4216

== ENCOUNTER → 2017-11-07 | Day surgery (SDC) | payer MEDICARE ==
[2017-11-06 14:39] VITALS: BMI 34.9
[~2017-11-07] MED LIST: Prevnar 13-Val Conj/PF 0.5 ML SYRINGE IM ONE
== END ==
LOC: ULT 08:20
PROVIDERS: ATTEND Internal Medicine Gastroenterology
DX: R18.8 Other ascites (principal); K74.60 Unspecified cirrhosis of liver; Z88.2 Allergy status to sulfonamides; Z88.5 Allergy status to narcotic agent; Z91.040 Latex allergy status